=== PATIENT | female | born 1945 | race Caucasian/White ===

== ENCOUNTER 2017-05-12 17:38 | Inpatient (IN) ==
[2017-05-12] MEDS ORDERED: Ondansetron 4 MG/2 ML VIAL IVP PRN (20:20)
[2017-05-12] MEDS ORDERED: Naloxone 0.4 MG/ML INJ IVP PRN (20:20)
[2017-05-12] MEDS ORDERED: *HR* Morphine 2 MG/ML SYRINGE IVP PRN (20:20)
[2017-05-12] MEDS ORDERED: *HR* HYDROcodone/Acet 5/325 mg TABLET PO PRN (20:20)
[2017-05-12] MEDS ORDERED: D5% in Water 1,000 ML IVC PRN (20:24)
[2017-05-12] MEDS ORDERED: Dextrose Gel 15 GM PO PRN ×2 (20:24)
--- NOTE | 2017-05-12 20:35 | Internal Med History&Physical ---
<Maxime Ko - Last Filed: 05/12/17 21:15> Date of Encounter: 05/12/17 Time of Encounter: 20:32 Assessment and Plan (1) Sepsis Current visit: Yes Status: Acute - Sepsis criteria in [place] ED with RR 24, febrile, wbc count of 23 - Normal lactate, BP stable. - Possibly secondary to bronchitis vs other possibility of PNA or cellulitis - Meningitis doubtful due to lack of neurological symptoms and persistent fever. Will monitor for worsening. - Further management as below for acute on chronic respiratory failure. Qualifiers: Sepsis type: sepsis due to unspecified organism Qualified Code(s): A41.9 - Sepsis, unspecified organism (2) Acute and chronic respiratory failure Current visit: Yes Status: Chronic - Likely secondary to bronchitis. vs early PNA - Wheezing heard on Physical exam. - 2-2.5L home O2, tolerating 4 L at time of admit. - Productive cough, no evidence of PNA seen on CXR/CT - Will give azithromycin, duonebs. - Start cephtriaxone for possible early PNA. Qualifiers: Respiratory failure complication: unspecified whether with hypoxia or hypercapnia Qualified Code(s): J96.20 - Acute and chronic respiratory failure , unspecified whether with hypoxia or hypercapnia (3) Chronic kidney disease (CKD), stage IV (severe) Current visit: Yes Status: Chronic - Renal function at baseline. - Avoid nephrotoxic meds. - Closely monitor K, 4.8 in [place]. (4) Diabetes mellitus type II, non insulin dependent Current visit: Yes Status: Chronic - Most recent A1c of 5.8% in march - Non insulin dependent. - Will give mild SSI. (5) Hypertension Current visit: Yes Status: Chronic - Continue home meds. Qualifiers: Hypertension type: secondary to other renal disorders Qualified Code(s): I15.1 - Hypertension secondary to other renal disorders (6) Lower extremity edema Current visit: Yes Status: Chronic - Likely secondary to CHF, lymphadema - Continue outpatient nystatin cream, lasix. - Unlikely source of fevers. No warmth, erythema noted - Will obtain LE US to rule out DVT (7) Morbid obesity Current visit: Yes Status: Chronic - Morbid obesity with BMI 50. Pt would benefit from outpatient weight loss (8) DVT prophylaxis Current visit: Yes Status: Acute - Heparin 5000 units q12 Internal Medicine - H&P: HPI Chief complaint: SOB, fevers Admitted From: Hospital to Hospital Transfer Plans for Post Hospital Care: Home History of present illness: Ms. Mancera is a 71 year old female who presents from [place] ED with a complaint of increased SOB, fevers, muscle pain since yesterday. She states that her symptoms began suddenly yesterday when she woke yesterday morning with neck and jaw pain which she describes as dull pain and noticed that she has become increasingly SOB despite using her home 2.5L of O2. She also states she has had a productive cough, chest pain, thick green sputum, and chronic LE swelling and pain that was seen by her PCP and she was given augmentin and nystatin cream last week. She reports no improvement with these meds. In the [place] ED, she was noted to have a fever of 102, respirations 20, WBC of 27, lactate 1.5. Troponin 0.06. CXR showed mild pulmonary congestion. CT abdomen/ pelvis/chest showed no evidence of infectious process. Flu swab was negative. She was sent to [facility] [place] for further management. Past Med Surg Social Fam HX - Past Medical History Medical history: asthma, CHF, diabetes, hypertension, renal disease Psychiatric history: no psych history - Past Surgical History Surgical History: , hysterectomy - Social History Smoking Status: Former smoker Smokeless Tobacco Status: No Alcohol use: none Drug use: none - Family History Mother Living Status: Hx Family Cardiac Disorders: No Hx Family Respiratory Disorders: No Hx Family Cancer: Yes Hx Family GI Disorders: No Hx Family Endocrine Disorder: No Hx Family Neuromuscular Disorders: No Hx Family Neurologic Disorders: No Hx Family HEENT Disorders: No Hx Family Autoimmune Disorders: No Brother Living Status: Hx Family Cardiac Disorders: Yes Hx Family Cancer: Yes Internal Medicine - H&P: Meds Amlodipine Besylate 10 mg PO DAILY 11/06/15 [History] Aspirin Enteric Coated [Aspirin EC] 81 mg PO DAILY 11/06/15 [History] Atorvastatin [Lipitor] 10 mg PO DAILY 11/06/15 [History] Carvedilol [Coreg] 25 mg PO BID 11/06/15 [History] Ergocalciferol (VITAMIN D2) [Vitamin D2 (50,000 UNIT)] 50,000 unit PO QWEEK [History] Furosemide [Lasix] 65 mg PO BID 11/06/15 [History] Glimepiride [Amaryl] 1 mg PO BID 11/06/15 [History] Montelukast [Singulair] 10 mg PO QPM 11/06/15 [History] Albuterol Neb [Proventil Neb] 2.5 mg IH Q4HR PRN 02/20/16 [History] metOLazone [Zaroxolyn] 2.5 mg PO BID #30 tablet 02/27/16 [Rx] 3 Allergy/AdvReac Type Severity Reaction Status Date / Time NSAIDS (Non-Steroidal Allergy See Verified 05/12/17 14:53 Anti-Inflamma Comments Sulfa (Sulfonamide Allergy Hives Verified 05/12/17 14:53 Antibiotics) All Systems PM: A 10-system review of systems was performed and is negative for pertinent findings except as documented above in the HPI. - Constitutional Constitutional: chills, fever(s), weakness, no anorexia, no excessive sweating - Cardiovascular Cardiovascular ROS IM: chest pain, dyspnea, dyspnea on exertion, edema, no diaphoresis, no orthopnea - Respiratory Respiratory: cough, dyspnea, dyspnea on exertion, chest congestion, excessive phlegm production, no hemoptysis, no pain with cough - Gastrointestinal Gastrointestinal: nausea, no abdominal pain, no change in bowel habits, no constipation, no diarrhea, no loose stools, no melena, no vomiting - Genitourinary Genitourinary: no dysuria - Musculoskeletal Musculoskeletal ROS IM: myalgias, neck pain, no muscle weakness, no numbness, no tingling - Integumentary Integumentary IM: no rash - Neurological Neurological ROS: no numbness, no tingling, no weakness - Constitutional Vitals: Temp Pulse Resp BP Pulse Ox 98.6 F 75 18 118/70 96 05/12/17 19:34 05/12/17 19:34 05/12/17 19:34 05/12/17 19:34 05/12/17 19:34 Exam: Gen.: Vitals noted. No acute distress. AAOx3 HEENT: PERRL, oropharynx clear, Normocephalic, atraumatic, MMM. Poor dentition Cardiac: RRR, no murmur, +S1/S2 Pulmonary: Inspiratory wheezes diffusely. Wet cough while in room.equal chest expansion Abdomen: soft, mildly tender diffusely, BS noted, no guarding MSK: ROM intact, no joint swelling noted Extremities:Lower extremities wrapped, pitting edema noted. No erythema or discharge, warmth. Calf tender but pt reports chronic due to swelling. no cyanosis or clubbing Neuro: A&Ox3, moves all extremities, no focal deficits Psych: Appropriate mood and behavior <Eryn Siegel - Last Filed: 05/13/17 06:19> Date of Encounter: 05/13/17 Internal Medicine - H&P: HPI History of present illness: Ms. Mancera is a 71 year old female All Systems PM: A 10-system review of systems was performed and is negative for pertinent findings except as documented above in the HPI. - Constitutional Vitals: Temp Pulse Resp BP Pulse Ox 97.9 F 65 16 119/56 98 05/13/17 02:52 05/13/17 02:52 05/13/17 02:52 05/13/17 02:52 05/13/17 02:52 Internal Med - H&P Results - Labs CBC & Chem 7: 05/13/17 02:47 05/13/17 02:47 Labs: Short CBC 05/13/17 Range/Units 02:47 WBC 22.4 H (4.3-11.1) K/mcL Hgb 9.2 L (11.5-15.4) g/dL Hct 30.0 L (35.3-44.9) % Plt Count 219 (140-400) K/mcL Neutrophils # 19.9 H (1.6-8.9) K/mcL BMP 05/13/17 02:47 Sodium 138 Potassium 4.4 Chloride 99 Carbon Dioxide 31 H BUN 64 H Creatinine 3.21 H Glucose 67 L Calcium 8.8 - Attending Attestation I have seen and examined the patient independently. I have discussed with resident physician Dr. Ko regarding the management plan. Agree with the documentation.
[2017-05-12] MEDS ORDERED: Azithromycin 500 MG in D5% in Water 250 ML IVPB SCH (21:00)
[2017-05-12] MEDS: Acetaminophen 325 MG TABLET PO PRN (21:18)
[2017-05-12] MEDS: Ipratropium/Albuterol Neb 3 ML IH PRN (21:56)
[2017-05-13 03:36] LABS: Basophils # 0.1 K/mcL (0.0-0.2); Basophils % 0.2 %; Hemoglobin 9.2 g/dL (11.5-15.4); Immature Granulocytes % 0.6 % (0-4); Lymphocytes # 1.1 K/mcL (0.6-4.6); Lymphocytes % 4.7 %; Mean Corpuscular HGB Conc 30.7 g/dL (31.6-35.5); Mean Corpuscular Volume 94.6 fL (83.0-100.0); Mean Platelet Volume 12.1 fL (9.4-12.4); Monocytes # 1.2 K/mcL (0.0-1.3); Monocytes % 5.3 %; Neutrophils # 19.9 K/mcL (1.6-8.9); Nucleated Red Blood Cells 0.1 /100 WBC (0); Platelet Count 219 K/mcL (140-400); Red Blood Count 3.17 M/mcL (3.82-4.97); Red Cell Distribution Width 14.5 % (11.5-14.5); Segmented Neutrophils % 89.2 %
[2017-05-13 03:56] LABS: Calcium 8.8 mg/dL (8.6-10.8); Potassium 4.4 mEq/L (3.5-4.5)
[2017-05-13] MEDS ORDERED: *HR* Heparin 5,000 UNIT/ML VIAL SQ SCH (06:00)
[2017-05-13] MEDS: Insulin LISPRO 300 UNITS/3 ML VIAL SQ SCH ×3 (08:26→17:14)
[2017-05-13] MEDS ORDERED: cefTRIAXone 1,000 MG in Water for inj. (sterile) 10 ML IVP SCH (09:00)
[2017-05-13] MEDS: Ipratropium/Albuterol Neb 3 ML IH PRN (09:09)
[2017-05-13] MEDS ORDERED: 0.9 % Sodium Chloride 1,000 ML IVC ONE (11:31)
[2017-05-13] MEDS ORDERED: 0.9 % Sodium Chloride 1,000 ML ONE (11:39)
[2017-05-13] MEDS ORDERED: Vancomycin 2,000 MG in D5% in Water 250 ML IVPB SCH (12:00)
[2017-05-13] MEDS ORDERED: Vancomycin 2,000 MG in D5% in Water 500 ML IVPB ONE (13:00)
[2017-05-13] MEDS: *HR* Heparin 5,000 UNIT/ML VIAL SQ SCH ×2 (13:53→21:12)
[2017-05-13] MEDS: Acetaminophen 325 MG TABLET PO PRN (13:53)
--- NOTE | 2017-05-13 16:47 | Internal Med Progress Note ---
Date of Encounter: 05/13/17 Time of Encounter: 16:42 - Assessment and plan (1) Cellulitis Current Visit: No Status: Acute Assessment and plan: Kami Mancera is a 71-year-old female with past medical history COPD, CHF, diabetes, hypertension and morbid obesity who presented to outside hospital on 05/12/2017 with fever and was found to be septic. She was transferred to [facility] for further workup and treatment. 1. Nonpurulent bilateral lower extremity cellulitis: bilateral lower extremities with diffuse erythema warmth and tenderness. Left worse than right. Was being treated with oral fluconazole for suspected fungal infection. Bilateral lower extremitie Dopplers negative for DVT. No drainage to culture. Add IV Vanco. Monitor clinical response. 2. Sepsis: RR 24, temp 103, WBC 23K. lactic acid normal. No tachycardia, no hypertension. Hemodynamically stable. Treated with IV fluids. Secondary to bilateral lower extreme any cellulitis. Continue treating with Vanco as noted above. 3. Acute on chronic kidney disease: Per history. Follows with Dr. Astudillo. Cr 3.2 on arrival which appears to be worse than baseline. Likely secondary to hypoperfusion with sepsis and poor PO intake for 2 days prior to admission. Gentle IV fluids with history of CHF. Avoid nephrotoxic agents. Renal dose Vanco. Monitor repeat renal function 4. Diabetes: Per history. On Amaryl at home. Blood sugars in 40s to 50s while inpatient. Asymptomatic. Stop all insulin. Monitor blood sugar. Hgb A1c pending 5. Hypertension: Per history. BP variable but acceptable. Continue home BP medication once medication reconciliation was completed. Monitor BP 6. Elevated troponin: Troponin peaked at 0.06 and trended down. No known CAD. Patient reported chest pain prior to admission, resolved spontaneously. Denies chest pain. EKG without acute ST changes. Possibly secondary to worsening renal function however she does have multiple risk factors. Recommended stress test however patient is refusing stress test or heart catheterization. Monitor on telemetry. Continue home ASA, statin. 7. DVT prophylaxis: heparin 8. Chronic diastolic dysfunction: 10/2015 TTE with EF 60% and diastolic dysfunction. With lower extreme edema secondary to cellulitis as noted above but does not appear overloaded on exam. Holding home Lasix with worsening renal function. Repeat echo pending Qualifiers: Site of cellulitis: extremity Site of cellulitis of extremity: lower extremity Laterality: left Qualified Code(s): L03.116 - Cellulitis of left lower limb (2) CHRISTOPHE (acute kidney injury) Current Visit: No Status: Acute (3) Chest pain Current Visit: No Status: Acute Qualifiers: Chest pain type: unspecified Qualified Code(s): R07.9 - Chest pain, unspecified (4) CHF (congestive heart failure) Current Visit: No Status: Chronic Qualifiers: Congestive heart failure type: unspecified congestive heart failure type Congestive heart failure chronicity: acute on chronic Qualified Code(s): I50.9 - Heart failure, unspecified (5) Chronic kidney disease (CKD), stage IV (severe) Current Visit: Yes Status: Chronic (6) Diabetes mellitus type II, non insulin dependent Current Visit: Yes Status: Chronic - Subjective Interval history: Seen and examined at bedside. Patient is new to me, information obtained from chart review and patient report. Patient says she feels better now versus when she first came in. Reports fever yesterday with chest pain and shortness of breath. Says she has been taking an antibiotic for her lower extremity cellulitis. Says her PCP thought it was a fungal infection and she has been taking. She complains of bilateral lower extremity pain all my exam. Says feels like her legs are burning. He makes better or worse. She denies chest pain or shortness of breath. - Constitutional Vitals: Temp Pulse Resp BP Pulse Ox 97.9 F 70 18 112/57 91 05/13/17 15:12 05/13/17 15:12 05/13/17 15:12 05/13/17 15:12 05/13/17 15:12 General appearance: Present: A&O X 3, morbidly obese, no acute distress - Head Head exam: Present: atraumatic, normocephalic - Eye Eye exam: Present: PERRL, conjuntiva pink, sclera anicteric Pupils: Present: PERRL - Neck Neck exam general surgery: Present: supple, trachea midline. Absent: lymphadenopathy - Respiratory Respiratory exam: Present: CTAB. Absent: accessory muscle use, rales, rhonchi, wheezes - Cardiovascular Cardiovascular exam: Present: RRR, +S1, +S2. Absent: diastolic murmur, gallop, rubs, systolic murmur - GI/Abdominal GI/Abdominal exam: Present: normal bowel sounds, soft, no peritoneal signs. Absent: distended, tenderness - Extremities Exam Extremities exam: Present: pedal edema, warm, radial pulses palpable and symmetrical. Absent: calf tenderness, cyanotic Additional comments: Bilateral lower extremity edema; left worse than right - Neurological Exam Neurological exam: Present: CN II-XII intact, oriented X3, no focal deficits. Absent: pronater drift, facial droop, speech deficit - Skin Skin exam: Present: dry, intact Internal Medicine: Result - Labs CBC & Chem 7: 05/13/17 02:47 05/13/17 02:47 Labs: Short CBC 05/13/17 Range/Units 02:47 WBC 22.4 H (4.3-11.1) K/mcL Hgb 9.2 L (11.5-15.4) g/dL Hct 30.0 L (35.3-44.9) % Plt Count 219 (140-400) K/mcL Neutrophils # 19.9 H (1.6-8.9) K/mcL BMP 05/13/17 02:47 Sodium 138 Potassium 4.4 Chloride 99 Carbon Dioxide 31 H BUN 64 H Creatinine 3.21 H Glucose 67 L Calcium 8.8 Cardiac Enzymes 05/13/17 05/13/17 Range/Units 09:08 14:21 Troponin I 0.06 H* 0.04 H* (0-0.03) ng/mL - VTE Documentation of Mechanical Device: Graduated compression elastic hosiery Consult Discharge Plan - Plan Referrals: Rj Pollack MD [Primary Care Provider] -
[2017-05-13] MEDS ORDERED: Albuterol 2.5 MG/3 ML NEBULIZER IH PRN (17:30)
[2017-05-13] MEDS: *HR* Dextrose 50 % in Water (Syg) 50 ML SYRINGE IVP PRN (21:44)
[2017-05-13] MEDS ORDERED: D10% in Water 500 ML IVC SCH (22:30)
[2017-05-14] MEDS: *HR* Dextrose 50 % in Water (Syg) 50 ML SYRINGE IVP PRN ×2 (00:30→04:22)
[2017-05-14 04:03] LABS: Hematocrit 28.8 % (35.3-44.9); Hemoglobin 8.8 g/dL (11.5-15.4); Immature Platelets 9.8 % (1.1-6.1); Mean Corpuscular HGB Conc 30.6 g/dL (31.6-35.5); Mean Corpuscular Hemoglobin 29.1 pg (28.0-33.3); Mean Corpuscular Volume 95.4 fL (83.0-100.0); Red Blood Count 3.02 M/mcL (3.82-4.97); Red Cell Distribution Width 14.5 % (11.5-14.5)
[2017-05-14 04:19] LABS: Hemoglobin A1C 5.8 %
[2017-05-14 04:22] LABS: Calcium 8.7 mg/dL (8.6-10.8); Potassium 4.1 mEq/L (3.5-4.5)
[2017-05-14] MEDS: D10% in Water 500 ML IVC SCH ×7 (05:06→23:33)
[2017-05-14] MEDS: Acetaminophen 325 MG TABLET PO PRN ×2 (05:10→16:56)
[2017-05-14] MEDS: Ipratropium/Albuterol Neb 3 ML IH PRN ×2 (05:54→16:49)
[2017-05-14] MEDS: *HR* Heparin 5,000 UNIT/ML VIAL SQ SCH ×3 (06:22→20:36)
[2017-05-14] MEDS: amLODIPine 5 MG TABLET PO SCH (07:48)
[2017-05-14] MEDS: Aspirin Enteric Coated 81 MG Tablet PO SCH (07:48)
--- NOTE | 2017-05-14 15:30 | Internal Med Progress Note ---
Date of Encounter: 05/14/17 Time of Encounter: 09:30 - Assessment and plan (1) Cellulitis Current Visit: No Status: Acute Assessment and plan: Kami Mancera is a 71-year-old female with past medical history COPD, CHF, diabetes, hypertension and morbid obesity who presented to outside hospital on 05/12/2017 with fever and was found to be septic. She was transferred to [facility] for further workup and treatment. 1. Nonpurulent bilateral lower extremity cellulitis: bilateral lower extremities with diffuse erythema warmth and tenderness. Left worse than right. Was being treated with oral fluconazole for suspected fungal infection. Bilateral lower extremitie Dopplers negative for DVT. No drainage to culture. Cont IV Vanco. Monitor clinical response. 2. Sepsis: RR 24, temp 103, WBC 23K. lactic acid normal. No tachycardia, no hypertension. Hemodynamically stable. Treated with IV fluids. Secondary to bilateral lower extreme any cellulitis. Continue treating with Vanco as noted above. 3. Acute on chronic kidney disease: Per history. Follows with Dr. Astudillo. Cr 3.2 on arrival which is worse than baseline. Likely secondary to hypoperfusion with sepsis and poor PO intake for 2 days prior to admission. Hold IV fluids with history of CHF. Hold lasix. Encourage H2O intake. Avoid nephrotoxic agents. Renal dose Vanco. Monitor repeat renal function 4. Diabetes: Per history. On Amaryl at home. Blood sugars in 40s to 50s despite 2 amps IV dextrose. Secondary to home oral hypoglycemic with worsening renal function. Continue D10 infusion. Monitor blood sugar and titrate dextrose infusion as able. Suspect glucose will normalize as renal function improves. 5. Hypertension: Per history. BP variable but acceptable. Continue home BP medication once medication reconciliation was completed. Monitor BP 6. Elevated troponin: Troponin peaked at 0.06 and trended down. No known CAD. Patient reported chest pain prior to admission, resolved spontaneously. Denies chest pain. EKG without acute ST changes. Possibly secondary to worsening renal function however she does have multiple risk factors. Recommended stress test however patient is refusing stress test or heart catheterization. Monitor on telemetry. Continue home ASA, statin. 7. DVT prophylaxis: heparin 8. Chronic diastolic dysfunction: 10/2015 TTE with EF 60% and diastolic dysfunction. With lower extreme edema secondary to cellulitis as noted above but does not appear overloaded on exam. Holding home Lasix with worsening renal function. Repeat echo pending Qualifiers: Site of cellulitis: extremity Site of cellulitis of extremity: lower extremity Laterality: left Qualified Code(s): L03.116 - Cellulitis of left lower limb (2) CHRISTOPHE (acute kidney injury) Current Visit: No Status: Acute (3) Chest pain Current Visit: No Status: Acute Qualifiers: Chest pain type: unspecified Qualified Code(s): R07.9 - Chest pain, unspecified (4) CHF (congestive heart failure) Current Visit: No Status: Chronic Qualifiers: Congestive heart failure type: unspecified congestive heart failure type Congestive heart failure chronicity: acute on chronic Qualified Code(s): I50.9 - Heart failure, unspecified (5) Chronic kidney disease (CKD), stage IV (severe) Current Visit: Yes Status: Chronic (6) Diabetes mellitus type II, non insulin dependent Current Visit: Yes Status: Chronic - Subjective Interval history: Seen and examined at bedside. Still complaining of bilateral lower extremity pain but overall improved. She thinks her legs are not as red or swollen today. No chest pain or shortness of breath. - Constitutional Vitals: Temp Pulse Resp BP Pulse Ox 98.0 F 100 18 114/71 94 05/14/17 11:31 05/14/17 11:31 05/14/17 11:31 05/14/17 11:31 05/14/17 11:31 General appearance: Present: A&O X 3, morbidly obese, no acute distress - Head Head exam: Present: atraumatic, normocephalic - Eye Eye exam: Present: PERRL, conjuntiva pink, sclera anicteric Pupils: Present: PERRL - Neck Neck exam general surgery: Present: supple, trachea midline. Absent: lymphadenopathy - Respiratory Respiratory exam: Present: CTAB. Absent: accessory muscle use, rales, rhonchi, wheezes - Cardiovascular Cardiovascular exam: Present: RRR, +S1, +S2. Absent: diastolic murmur, gallop, rubs, systolic murmur - GI/Abdominal GI/Abdominal exam: Present: normal bowel sounds, soft, no peritoneal signs. Absent: distended, tenderness Additional comments: obese - Extremities Exam Extremities exam: Present: pedal edema, warm, radial pulses palpable and symmetrical. Absent: calf tenderness, cyanotic Additional comments: Bilateral lower extremity edema with improving erythema and tenderness. - Neurological Exam Neurological exam: Present: CN II-XII intact, oriented X3, no focal deficits. Absent: pronater drift, facial droop, speech deficit - Skin Skin exam: Present: dry, intact Internal Medicine: Result - Labs CBC & Chem 7: 05/14/17 02:48 05/14/17 02:48 Labs: Short CBC 05/14/17 Range/Units 02:48 WBC 15.1 H (4.3-11.1) K/mcL Hgb 8.8 L (11.5-15.4) g/dL Hct 28.8 L (35.3-44.9) % Plt Count 197 (140-400) K/mcL BMP 05/14/17 02:48 Sodium 136 Potassium 4.1 Chloride 98 Carbon Dioxide 31 H BUN 64 H Creatinine 3.05 H Glucose 49 L Calcium 8.7 - VTE Documentation of Mechanical Device: Graduated compression elastic hosiery Consult Discharge Plan - Plan Referrals: Rj Pollack MD [Primary Care Provider] -
[2017-05-14] MEDS ORDERED: 0.9 % Sodium Chloride 1,000 ML IVC SCH (15:45)
[2017-05-14] MEDS ORDERED: Vancomycin 500 MG in D5% in Water 100 ML IVPB ONE (18:00)
[2017-05-15] MEDS: D10% in Water 500 ML IVC SCH ×2 (02:56→06:05)
[2017-05-15] MEDS: Ipratropium/Albuterol Neb 3 ML IH PRN ×4 (04:46→22:52)
[2017-05-15 05:00] LABS: Hematocrit 31.2 % (35.3-44.9); Hemoglobin 9.6 g/dL (11.5-15.4); Mean Corpuscular HGB Conc 30.8 g/dL (31.6-35.5); Mean Corpuscular Hemoglobin 28.8 pg (28.0-33.3); Mean Corpuscular Volume 93.7 fL (83.0-100.0); Mean Platelet Volume 11.7 fL (9.4-12.4); Platelet Count 234 K/mcL (140-400); Red Blood Count 3.33 M/mcL (3.82-4.97); Red Cell Distribution Width 14.2 % (11.5-14.5)
[2017-05-15] MEDS: *HR* Heparin 5,000 UNIT/ML VIAL SQ SCH ×3 (05:00→20:40)
[2017-05-15] MEDS: Acetaminophen 325 MG TABLET PO PRN ×3 (05:00→18:10)
[2017-05-15 05:11] LABS: Calcium 8.7 mg/dL (8.6-10.8); Potassium 4.3 mEq/L (3.5-4.5)
[2017-05-15] MEDS: Aspirin Enteric Coated 81 MG Tablet PO SCH (08:28)
[2017-05-15] MEDS: amLODIPine 5 MG TABLET PO SCH (08:28)
--- NOTE | 2017-05-15 11:54 | Discharge Summary ---
Date of Encounter: 05/15/17 Time of Encounter: 11:28 - Discharge Diagnosis (1) Cellulitis Priority: Primary Status: Acute Comments: Kami Mancera is a 71-year-old female with past medical history COPD, CHF, diabetes, hypertension and morbid obesity who presented to outside hospital on 05/12/2017 with fever and was found to be septic. She was transferred to [facility] for further workup and treatment. 1. Nonpurulent bilateral lower extremity cellulitis: bilateral lower extremities with diffuse erythema warmth and tenderness. Left worse than right. PCP treating with oral fluconazole for suspected fungal infection. Bilateral lower extremitie Dopplers negative for DVT. No drainage to culture. Cont Vanco, cefepime. 2. Sepsis: RR 24, temp 103, WBC 23K. lactic acid normal. No tachycardia, no hypertension. Hemodynamically stable. Received IV fluids. Secondary to bilateral lower extreme any cellulitis. Continue treating with ATB as noted above. 3. Acute on chronic kidney disease: Per history. Follows with Dr. Astudillo. Cr 3.2 on arrival which is worse than baseline. Likely secondary to hypoperfusion with sepsis and poor PO intake for 2 days prior to admission. Hold IV fluids with history of CHF. Hold lasix. Encourage H2O intake. Avoid nephrotoxic agents. Renal dose Vanco. Monitor repeat renal function 4. Diabetes: Per history. On Amaryl at home. Blood sugars in 40s to 50s despite 2 amps IV dextrose. Required cont D10 infusion. Secondary to home oral hypoglycemic with worsening renal function. Hgb A1c 5.4%. Blood sugars normalized as renal function improved. D10 off. Hold all insulin, oral hypoglycemics. Monitor blood sugar 5. Hypertension: Per history. BP variable but acceptable. Continue home BP medication once medication reconciliation was completed. Monitor BP 6. Elevated troponin: Troponin peaked at 0.06 and trended down. No known CAD. Patient reported chest pain prior to admission, resolved spontaneously. Denies chest pain. EKG without acute ST changes. Possibly secondary to worsening renal function however she does have multiple risk factors. Recommended stress test but patient refusing stress test or heart catheterization. Monitor on telemetry. Continue home ASA, statin. 7. DVT prophylaxis: heparin 8. Chronic diastolic dysfunction: 10/2015 TTE with EF 60% and diastolic dysfunction. With lower extreme edema secondary to cellulitis but does not appear overloaded on exam. Repeat echo pending. Cont home lasix Qualifiers: Site of cellulitis: extremity Site of cellulitis of extremity: lower extremity Laterality: left Qualified Code(s): L03.116 - Cellulitis of left lower limb (2) CHRISTOPHE (acute kidney injury) Priority: Primary Status: Acute (3) Chest pain Priority: Primary Status: Acute Qualifiers: Chest pain type: unspecified Qualified Code(s): R07.9 - Chest pain, unspecified (4) CHF (congestive heart failure) Priority: Primary Status: Chronic Qualifiers: Congestive heart failure type: unspecified congestive heart failure type Congestive heart failure chronicity: acute on chronic Qualified Code(s): I50.9 - Heart failure, unspecified (5) Chronic kidney disease (CKD), stage IV (severe) Priority: Primary Status: Chronic (6) Diabetes mellitus type II, non insulin dependent Priority: Primary Status: Chronic - Discharge Medications Home Medications: Amlodipine Besylate 5 mg PO DAILY 11/06/15 [History] Aspirin Enteric Coated [Aspirin EC] 81 mg PO DAILY 11/06/15 [History] Atorvastatin [Lipitor] 10 mg PO DAILY 11/06/15 [History] Carvedilol [Coreg] 25 mg PO BID 11/06/15 [History] Ergocalciferol (VITAMIN D2) [Vitamin D2 (50,000 UNIT)] 50,000 unit PO QWEEK [History] Furosemide [Lasix] 40 mg PO BID 11/06/15 [History] Glimepiride [Amaryl] 1 mg PO BID 11/06/15 [History] Montelukast [Singulair] 10 mg PO QPM 11/06/15 [History] Albuterol Neb [Proventil Neb] 2.5 mg IH Q4HR PRN 02/20/16 [History] Spironolactone [Aldactone] 25 mg PO DAILY 05/13/17 [History] Allergies/Adverse Reactions: 3 Allergy/AdvReac Type Severity Reaction Status Date / Time NSAIDS (Non-Steroidal Allergy See Verified 05/12/17 14:53 Anti-Inflamma Comments Sulfa (Sulfonamide Allergy Hives Verified 05/12/17 14:53 Antibiotics) Procedures/tests Complete & Pending: Procedures Performed prior 72 hours Category Date Time Status EV echocardiogram Routine Y 11/19/17 17:31 Completed EV venous imaging LE BI Routine Y 05/13/17 21:13 Completed Date of admission: 05/13/17 11:35 Primary care physician: Rj Pollack MD Discharging clinician: India Glasgow Anticipated date of discharge: 05/15/17 - Patient Status Disposition: Home, Self-Care Condition: Good - Discharge Instructions Follow Up With: Rj Pollack MD [Primary Care Provider] - Interval History: Seen and examined at bedside. Sitting up on edge of bed. Patient says she thinks legs look better. Reports an episode of SOB earlier this morning. Now resolved. No chest pain - Time Spent with Patient Total time spent providing and/or coordinating discharge services: - Constitutional Vitals: Temp Pulse Resp BP Pulse Ox 98.2 F 73 16 136/78 92 05/15/17 07:33 05/15/17 07:33 05/15/17 07:33 05/15/17 07:33 05/15/17 08:25 General appearance: Present: A&O X 3, morbidly obese, no acute distress - Head Head exam: Present: atraumatic, normocephalic - Eye Eye exam: Present: PERRL, conjuntiva pink, sclera anicteric Pupils: Present: PERRL - Neck Neck exam general surgery: Present: supple, trachea midline. Absent: lymphadenopathy - Respiratory Respiratory exam: Present: CTAB. Absent: accessory muscle use, rales, rhonchi, wheezes - Cardiovascular Cardiovascular exam: Present: RRR, +S1, +S2. Absent: diastolic murmur, gallop, rubs, systolic murmur - GI/Abdominal GI/Abdominal exam: Present: normal bowel sounds, soft, no peritoneal signs. Absent: distended, tenderness - Extremities Exam Extremities exam: Present: warm, radial pulses palpable and symmetrical. Absent : calf tenderness, cyanotic, pedal edema - Neurological Exam Neurological exam: Present: CN II-XII intact, oriented X3, no focal deficits. Absent: pronater drift, facial droop, speech deficit - Skin Skin exam: Present: dry, intact Additional comments: Bilateral lower ext edema with improving erythema and swelling - VTE Documentation of Mechanical Device: Graduated compression elastic hosiery
[2017-05-15] MEDS ORDERED: Vancomycin 750 MG in D5% in Water 250 ML IVPB ONE (16:00)
[2017-05-15] MEDS: Furosemide 40 MG TABLET PO SCH (17:15)
[2017-05-15] MEDS: Cefepime HCl 2,000 MG in Water for inj. (sterile) 20 ML IVP SCH (17:16)
[2017-05-15] MEDS ORDERED: Cefepime HCl 2,000 MG in Water for inj. (sterile) 20 ML IVP SCH (18:00)
[2017-05-15] MEDS ORDERED: Cefepime HCl 2,000 MG in D5% in Water (Mini-Bag+) 100 ML IVPB SCH (18:00)
[2017-05-16] MEDS: Acetaminophen 325 MG TABLET PO PRN ×2 (01:04→18:33)
[2017-05-16 03:32] LABS: Hematocrit 27.3 % (35.3-44.9); Hemoglobin 8.6 g/dL (11.5-15.4); Mean Corpuscular HGB Conc 31.5 g/dL (31.6-35.5); Mean Corpuscular Hemoglobin 29.2 pg (28.0-33.3); Mean Corpuscular Volume 92.5 fL (83.0-100.0); Mean Platelet Volume 12.1 fL (9.4-12.4); Platelet Count 204 K/mcL (140-400); Red Blood Count 2.95 M/mcL (3.82-4.97); Red Cell Distribution Width 14.2 % (11.5-14.5)
[2017-05-16 03:41] LABS: Calcium 8.8 mg/dL (8.6-10.8); Potassium 4.5 mEq/L (3.5-4.5)
[2017-05-16] MEDS: *HR* Heparin 5,000 UNIT/ML VIAL SQ SCH ×3 (05:10→20:49)
[2017-05-16] MEDS: Ipratropium/Albuterol Neb 3 ML IH PRN ×2 (05:13→11:25)
[2017-05-16] MEDS: Furosemide 40 MG TABLET PO SCH ×2 (08:34→16:52)
[2017-05-16] MEDS: Spironolactone 25 MG TABLET PO SCH (08:34)
[2017-05-16] MEDS: Aspirin Enteric Coated 81 MG Tablet PO SCH (08:35)
[2017-05-16] MEDS: amLODIPine 5 MG TABLET PO SCH (08:37)
--- NOTE | 2017-05-16 12:46 | Nephrology Consult Note ---
Date of Encounter: 05/16/17 Time of Encounter: 11:40 Assessment and Plan (1) Chronic kidney disease (CKD), stage IV (severe) Current Visit: Yes Status: Chronic SCr at or better than baseline at 2.19, GFR 22 Agree with resuming home lasix at 40mg bid along with aldactone 25mg daily Will check urine for UA and proteinuria Will check PTH and vitamin D levels (2) Lower extremity edema Current Visit: Yes Status: Chronic Diuretics resumed as noted Strict I/Os advised Fluid restriction at 1.5 liter a day advised (3) Cellulitis Current Visit: No Status: Acute Continue abx per primary team Qualifiers: Site of cellulitis: extremity Site of cellulitis of extremity: lower extremity Laterality: left Qualified Code(s): L03.116 - Cellulitis of left lower limb History of Present Illness - Reason for Consult Consult date: 05/16/17 Chronic Kidney Disease Requesting physician: India Glasgow - History of Present Illness 71 y o female with PMH of DM, HTN, CAD and chronic venous insuff/lymphedema admitted and treated for possible sepsis source most likely from her lower extremities. She is currently being treated on iv cefepime with improvement. Her SCr noted initially elevated from baseline at 3.21, GFR 14 but has improved off diuretics for several days now to 2.19, GFR 22. Previous SCr noted at 2.65, as of 03/2017. Renal consulted for help with resuming diuretics while maintaining renal fxn. Past Med Surg Social Fam HX - Past Medical History Medical history: asthma, CHF, diabetes, hypertension, renal disease Psychiatric history: no psych history - Past Surgical History Surgical History: , hysterectomy - Social History Smoking Status: Former smoker Smokeless Tobacco Status: No Alcohol use: none Drug use: none - Family History Mother Living Status: Hx Family Cardiac Disorders: No Hx Family Respiratory Disorders: No Hx Family Cancer: Yes Hx Family GI Disorders: No Hx Family Endocrine Disorder: No Hx Family Neuromuscular Disorders: No Hx Family Neurologic Disorders: No Hx Family HEENT Disorders: No Hx Family Autoimmune Disorders: No Brother Living Status: Hx Family Cardiac Disorders: Yes Hx Family Cancer: Yes Medications and Allergies Amlodipine Besylate 5 mg PO DAILY 11/06/15 [History] Aspirin Enteric Coated [Aspirin EC] 81 mg PO DAILY 11/06/15 [History] Atorvastatin [Lipitor] 10 mg PO DAILY 11/06/15 [History] Carvedilol [Coreg] 25 mg PO BID 11/06/15 [History] Ergocalciferol (VITAMIN D2) [Vitamin D2 (50,000 UNIT)] 50,000 unit PO TH [History] Furosemide [Lasix] 40 mg PO DAILY 11/06/15 [History] Glimepiride [Amaryl] 1 mg PO QPM 11/06/15 [History] Montelukast [Singulair] 10 mg PO QPM 11/06/15 [History] Albuterol Neb [Proventil Neb] 2.5 mg IH Q4HR PRN 02/20/16 [History] Spironolactone [Aldactone] 25 mg PO DAILY 05/13/17 [History] Calcitriol [Rocaltrol] 0.25 mcg PO DAILY 05/15/17 [History] Febuxostat [Uloric] 40 mg PO DAILY 05/15/17 [History] Folic Acid [Folic Acid] 1 mg PO DAILY 05/15/17 [History] Glimepiride [Amaryl] 2 mg PO QAM 05/15/17 [History] Iron Ps Cmplx/Vit B12/FA [Poly-Iron 150 Forte Capsule] 1 cap PO DAILY 05/15/17 [ History] 3 Allergy/AdvReac Type Severity Reaction Status Date / Time NSAIDS (Non-Steroidal Allergy See Verified 05/12/17 14:53 Anti-Inflamma Comments Sulfa (Sulfonamide Allergy Hives Verified 05/12/17 14:53 Antibiotics) Review of Systems All Systems: reviewed and no additional remarkable complaints except as stated ( as noted in HPI, 10 systems reviewed) Exam - Vital Signs Vital signs: Initial Vital Signs Temp Pulse Resp BP Pulse Ox 98.6 F 75 18 118/70 96 05/12/17 19:34 05/12/17 19:34 05/12/17 19:34 05/12/17 19:34 05/12/17 19:34 Vital Signs - Last 8 Hours Temp Pulse Resp BP Pulse Ox 05/16/17 11:25 18 95 05/16/17 11:20 97.5 F L 78 18 138/68 95 05/16/17 07:27 98.3 F 81 16 118/61 89 05/16/17 05:16 28 125/66 95 Intake and Output 05/15/17 05/16/17 05/16/17 23:59 07:59 15:59 Intake Total 200 / 200 Balance 200 / 200 Intake: Oral 200 / 200 Other: Meal water pitcher # Voids 1 1 Weight 145.059 kg Blood Glucose* 196 166 171 Patient Weight 05/16/17 23:59 Weight 145.059 kg - General Appearance General appearance: chronically ill EENT: ATNC Neck: no JVD, supple Additional Comments: good areation ant bilat Cardiology: edema (LE bilat L>R with erythema noted), normal S1, normal S2 Gastrointestinal: no tenderness, no guarding, obese Integumentary: warm and dry Neurologic: no focal deficit Musculoskeletal: no deformities Psychiatric: mood/affect appropriate Results - Lab Results 05/16/17 02:39 05/16/17 02:39 Most recent lab results Calcium 8.8 mg/dL (8.6-10.8) 05/16/17 02:39 Consult Discharge Plan - Plan Referrals: Rj Pollack MD [Primary Care Provider] -
[2017-05-16 13:49] LABS: Bilirubin,Urine Negative (Negative); Blood,Urine Negative (Negative); Clarity,Urine Clear (Clear); Color,Urine Yellow (Yellow); Glucose,Urine (UA) Normal (Normal); Ketones,Urine Negative (Negative); Leukocyte Esterase,Urine Negative (Negative); Nitrite,Urine Negative (Negative); Protein,Urine Negative (Neg-Trace); Specific Gravity,Urine 1.012 (1.010-1.025); Urobilinogen,Urine Normal (Normal)
--- NOTE | 2017-05-16 14:08 | Internal Med Progress Note ---
Date of Encounter: 05/16/17 Time of Encounter: 13:56 - Assessment and plan (1) Cellulitis Current Visit: No Status: Acute Assessment and plan: Kami Mancera is a 71-year-old female with past medical history COPD, CHF, diabetes, hypertension and morbid obesity who presented to outside hospital on 05/12/2017 with fever and was found to be septic. She was transferred to [facility] for further workup and treatment. 1. Nonpurulent bilateral lower extremity cellulitis: bilateral lower extremities with diffuse erythema warmth and tenderness. Left worse than right. Was being treated with oral fluconazole for suspected fungal infection. Bilateral lower extremitie Dopplers negative for DVT. No drainage to culture. Cont IV Vanco, cefepime. Monitor clinical response. 2. Sepsis: RR 24, temp 103, WBC 23K. lactic acid normal. No tachycardia, no hypertension. Hemodynamically stable. Treated with IV fluids. Secondary to bilateral lower extreme any cellulitis. Continue treating with Vanco as noted above. 3. Acute on chronic kidney disease: Per history. Follows with Dr. Astudillo. Cr 3.2 on arrival which is worse than baseline. Likely secondary to hypoperfusion with sepsis and poor PO intake for 2 days prior to admission. Hold IV fluids with history of CHF. Home diuretics initially held, now resumed. Nephrology following. 4. Diabetes: Per history. On Amaryl at home. Blood sugars in 40s to 50s despite 2 amps IV dextrose. Secondary to home oral hypoglycemic with worsening renal function. D10 infusion now off. Blood sugar normalized as kidney function improved. Continue to monitor blood sugars. Holding all insulin at this time. 5. Hypertension: Per history. BP variable but acceptable. Continue home BP medication. BP and titrate PRN 6. Elevated troponin: Troponin peaked at 0.06 and trended down. No known CAD. Patient reported chest pain prior to admission, resolved spontaneously. Denies chest pain. EKG without acute ST changes. Possibly secondary to worsening renal function however she does have multiple risk factors. Recommended stress test however patient is refusing stress test or heart catheterization. Monitor on telemetry. Continue home ASA, statin. 7. DVT prophylaxis: heparin 8. Chronic diastolic dysfunction: 10/2015 TTE with EF 60% and diastolic dysfunction. With lower extreme edema secondary to cellulitis as noted above but does not appear overloaded on exam. 05/15/17 TTE with EF 60%, indeterminate diastolic dysfunction. Continue home diuretics 9. Aortic stenosis: TTE with moderate aortic stenosis. Will need yearly echoes for surveillance. Qualifiers: Site of cellulitis: extremity Site of cellulitis of extremity: lower extremity Laterality: left Qualified Code(s): L03.116 - Cellulitis of left lower limb (2) CHRISTOPHE (acute kidney injury) Current Visit: No Status: Acute (3) Chest pain Current Visit: No Status: Acute Qualifiers: Chest pain type: unspecified Qualified Code(s): R07.9 - Chest pain, unspecified (4) CHF (congestive heart failure) Current Visit: No Status: Chronic Qualifiers: Congestive heart failure type: unspecified congestive heart failure type Congestive heart failure chronicity: acute on chronic Qualified Code(s): I50.9 - Heart failure, unspecified (5) Chronic kidney disease (CKD), stage IV (severe) Current Visit: Yes Status: Chronic (6) Diabetes mellitus type II, non insulin dependent Current Visit: Yes Status: Chronic - Subjective Interval history: Seen and examined at bedside. Says she feels better today but she still concerned with lower extremity edema and redness. She thinks she needs 2 more days in the hospital. Denies chest pain recurrence. Has intermittent shortness of breath. No fevers or chills. - Constitutional Vitals: Temp Pulse Resp BP Pulse Ox 97.5 F L 78 18 138/68 95 05/16/17 11:20 05/16/17 11:20 05/16/17 11:25 05/16/17 11:20 05/16/17 11:25 General appearance: Present: A&O X 3, morbidly obese, no acute distress - Head Head exam: Present: atraumatic, normocephalic - Eye Eye exam: Present: PERRL, conjuntiva pink, sclera anicteric Pupils: Present: PERRL - Neck Neck exam general surgery: Present: supple, trachea midline. Absent: lymphadenopathy - Respiratory Respiratory exam: Present: CTAB. Absent: accessory muscle use, rales, rhonchi, wheezes - Cardiovascular Cardiovascular exam: Present: RRR, +S1, +S2. Absent: diastolic murmur, gallop, rubs, systolic murmur - GI/Abdominal GI/Abdominal exam: Present: normal bowel sounds, soft, no peritoneal signs. Absent: distended, tenderness - Extremities Exam Extremities exam: Present: pedal edema, warm, radial pulses palpable and symmetrical. Absent: calf tenderness, cyanotic Additional comments: Bilateral lower extremity edema improving from yesterday's exam. Left worse than right. - Neurological Exam Neurological exam: Present: CN II-XII intact, oriented X3, no focal deficits. Absent: pronater drift, facial droop, speech deficit - Skin Skin exam: Present: dry, intact Internal Medicine: Result - Labs CBC & Chem 7: 05/16/17 02:39 05/16/17 02:39 Labs: Short CBC 05/16/17 Range/Units 02:39 WBC 10.1 (4.3-11.1) K/mcL Hgb 8.6 L (11.5-15.4) g/dL Hct 27.3 L (35.3-44.9) % Plt Count 204 (140-400) K/mcL BMP 05/16/17 02:39 Sodium 131 L Potassium 4.5 Chloride 95 L Carbon Dioxide 29 BUN 47 H Creatinine 2.19 H Glucose 150 H Calcium 8.8 Urine 05/16/17 Range/Units 13:39 Urine Color Yellow (Yellow) Urine Clarity Clear (Clear) Urine pH 6.0 (5.0-8.0) pH Units Ur Specific [place] 1.012 (1.010-1.025) Urine Protein Negative (Neg-Trace) mg/dL Urine Glucose (UA) Normal (Normal) mg/dL - Impressions Impressions Chest X-Ray 05/15/17 11:47 IMPRESSION: Cardiomegaly. Otherwise, no acute abnormalities seen in the chest D/ / Carlito Pressley MD / Carlito Pressley MD Interpreting Provider: Carlito Pressley MD - VTE Documentation of Mechanical Device: Graduated compression elastic hosiery Consult Discharge Plan - Plan Referrals: Rj Pollack MD [Primary Care Provider] -
[2017-05-16] MEDS: Ipratropium/Albuterol Neb 3 ML IH SCH ×3 (15:48→23:12)
[2017-05-16] MEDS ORDERED: Vancomycin 750 MG in D5% in Water 250 ML IVPB ONE (16:00)
[2017-05-16] MEDS ORDERED: Vancomycin 500 MG in D5% in Water 100 ML IVPB ONE (16:00)
[2017-05-16] MEDS: Cefepime HCl 2,000 MG in Water for inj. (sterile) 20 ML IVP SCH (18:29)
[2017-05-16 22:35] LABS: Protein/Creatinine Ratio,Urine 0.17 mg/mg (0-0.20)
[2017-05-17] MEDS: Ipratropium/Albuterol Neb 3 ML IH SCH ×6 (02:45→23:25)
[2017-05-17 04:35] LABS: Hematocrit 26.7 % (35.3-44.9); Hemoglobin 8.3 g/dL (11.5-15.4); Mean Corpuscular HGB Conc 31.1 g/dL (31.6-35.5); Mean Corpuscular Volume 93.4 fL (83.0-100.0); Mean Platelet Volume 11.8 fL (9.4-12.4); Platelet Count 195 K/mcL (140-400); Red Blood Count 2.86 M/mcL (3.82-4.97); Red Cell Distribution Width 14.1 % (11.5-14.5)
[2017-05-17 04:50] LABS: Calcium 9.1 mg/dL (8.6-10.8); Potassium 4.5 mEq/L (3.5-4.5)
[2017-05-17] MEDS: *HR* Heparin 5,000 UNIT/ML VIAL SQ SCH ×3 (05:17→21:06)
[2017-05-17] MEDS: Spironolactone 25 MG TABLET PO SCH (09:18)
[2017-05-17] MEDS: Furosemide 40 MG TABLET PO SCH ×2 (09:18→17:23)
[2017-05-17] MEDS: Aspirin Enteric Coated 81 MG Tablet PO SCH (09:18)
[2017-05-17] MEDS: amLODIPine 5 MG TABLET PO SCH (09:20)
[2017-05-17] MEDS: Miconazole 2% ointment 114 GM TUBE TP SCH ×2 (13:50→21:06)
--- NOTE | 2017-05-17 15:50 | Internal Med Progress Note ---
Date of Encounter: 05/17/17 Time of Encounter: 15:48 - Assessment and plan (1) Cellulitis Current Visit: No Status: Acute Assessment and plan: Kami Mancera is a 71-year-old female with past medical history COPD, CHF, diabetes, hypertension and morbid obesity who presented to outside hospital on 05/12/2017 with fever and was found to be septic. She was transferred to [facility] for further workup and treatment. 1. Nonpurulent bilateral lower extremity cellulitis: bilateral lower extremities with diffuse erythema warmth and tenderness. Left worse than right. Was being treated with oral fluconazole for suspected fungal infection. Bilateral lower extremitie Dopplers negative for DVT. No drainage to culture. Cont IV Vanco, cefepime. Monitor clinical response. 2. Sepsis: RR 24, temp 103, WBC 23K. lactic acid normal. No tachycardia, no hypertension. Hemodynamically stable. Treated with IV fluids. Secondary to bilateral lower extreme any cellulitis. Continue treating with Vanco as noted above. 3. Acute on chronic kidney disease: Per history. Follows with Dr. Astudillo. Cr 3.2 on arrival which is worse than baseline. Likely secondary to hypoperfusion with sepsis and poor PO intake for 2 days prior to admission. Hold IV fluids with history of CHF. Home diuretics initially held, now resumed. Nephrology following. 4. Diabetes: Per history. On Amaryl at home. Blood sugars in 40s to 50s despite 2 amps IV dextrose. Secondary to home oral hypoglycemic with worsening renal function. D10 infusion now off. Blood sugar normalized as kidney function improved. Continue to monitor blood sugars. Holding all insulin at this time. 5. Hypertension: Per history. BP variable but acceptable. Continue home BP medication. BP and titrate PRN 6. Elevated troponin: Troponin peaked at 0.06 and trended down. No known CAD. Patient reported chest pain prior to admission, resolved spontaneously. Denies chest pain. EKG without acute ST changes. Possibly secondary to worsening renal function however she does have multiple risk factors. Recommended stress test however patient is refusing stress test or heart catheterization. Monitor on telemetry. Continue home ASA, statin. 7. DVT prophylaxis: heparin 8. Chronic diastolic dysfunction: 10/2015 TTE with EF 60% and diastolic dysfunction. With lower extreme edema secondary to cellulitis as noted above but does not appear overloaded on exam. 05/15/17 TTE with EF 60%, indeterminate diastolic dysfunction. Continue home diuretics 9. Aortic stenosis: TTE with moderate aortic stenosis. Will need yearly echoes for surveillance. Qualifiers: Site of cellulitis: extremity Site of cellulitis of extremity: lower extremity Laterality: left Qualified Code(s): L03.116 - Cellulitis of left lower limb (2) CHRISTOPHE (acute kidney injury) Current Visit: No Status: Acute (3) Chest pain Current Visit: No Status: Acute Qualifiers: Chest pain type: unspecified Qualified Code(s): R07.9 - Chest pain, unspecified (4) CHF (congestive heart failure) Current Visit: No Status: Chronic Qualifiers: Congestive heart failure type: unspecified congestive heart failure type Congestive heart failure chronicity: acute on chronic Qualified Code(s): I50.9 - Heart failure, unspecified (5) Chronic kidney disease (CKD), stage IV (severe) Current Visit: Yes Status: Chronic (6) Diabetes mellitus type II, non insulin dependent Current Visit: Yes Status: Chronic - Subjective Interval history: Seen and examined at bedside. Says she feels better today but she still not ready to go home. Patient with increasing oxygen needs overnight. Discussed with patient and she thinks it secondary to congestion, she does not want BiPAP qualification. She feels legs are improving and redness and swelling getting better. No chest pain, no shortness of breath. Complains of intermittent pain/ stinging to bilateral lower extremities. - Constitutional Vitals: Temp Pulse Resp BP Pulse Ox 98.0 F 68 18 136/61 89 05/17/17 15:37 05/17/17 15:37 05/17/17 15:40 05/17/17 15:37 05/17/17 15:40 General appearance: Present: A&O X 3, morbidly obese, no acute distress - Head Head exam: Present: atraumatic, normocephalic - Eye Eye exam: Present: PERRL, conjuntiva pink, sclera anicteric Pupils: Present: PERRL - Neck Neck exam general surgery: Present: supple, trachea midline. Absent: lymphadenopathy - Respiratory Respiratory exam: Present: CTAB. Absent: accessory muscle use, rales, rhonchi, wheezes - Cardiovascular Cardiovascular exam: Present: RRR, +S1, +S2. Absent: diastolic murmur, gallop, rubs, systolic murmur - GI/Abdominal GI/Abdominal exam: Present: normal bowel sounds, soft, no peritoneal signs. Absent: distended, tenderness - Extremities Exam Extremities exam: Present: pedal edema, warm, radial pulses palpable and symmetrical. Absent: calf tenderness, cyanotic Additional comments: Bilateral lower extremity edema with improving erythema and edema. Left remains greater than right. - Neurological Exam Neurological exam: Present: CN II-XII intact, oriented X3, no focal deficits. Absent: pronater drift, facial droop, speech deficit - Skin Skin exam: Present: dry, intact Internal Medicine: Result - Labs CBC & Chem 7: 05/17/17 03:58 05/17/17 03:58 Labs: Short CBC 05/17/17 Range/Units 03:58 WBC 10.2 (4.3-11.1) K/mcL Hgb 8.3 L (11.5-15.4) g/dL Hct 26.7 L (35.3-44.9) % Plt Count 195 (140-400) K/mcL [facility] 05/17/17 03:58 Sodium 134 L Potassium 4.5 Chloride 96 L Carbon Dioxide 29 BUN 53 H Creatinine 2.41 H Glucose 148 H Calcium 9.1 - VTE Documentation of Mechanical Device: Graduated compression elastic hosiery Consult Discharge Plan - Plan Referrals: Rj Pollack MD [Primary Care Provider] -
[2017-05-17] MEDS ORDERED: Vancomycin 500 MG in D5% in Water 100 ML IVPB SCH (16:00)
--- NOTE | 2017-05-17 16:21 | Nephrology Progress Note ---
Date of Encounter: 05/17/17 - Assessment and Plan (1) Chronic kidney disease (CKD), stage IV (severe) Current Visit: Yes Status: Chronic (2) Lower extremity edema Current Visit: Yes Status: Chronic (3) Cellulitis Current Visit: No Status: Acute Qualifiers: Site of cellulitis: extremity Site of cellulitis of extremity: lower extremity Laterality: left Qualified Code(s): L03.116 - Cellulitis of left lower limb Objective - Vital Signs Vital signs: Vital Signs Temp Pulse Resp BP Pulse Ox 05/17/17 15:40 18 89 05/17/17 15:37 98.0 F 68 17 136/61 91 05/17/17 11:51 16 95 05/17/17 10:51 98.0 F 58 18 133/56 92 05/17/17 08:05 24 93 05/17/17 07:04 98.0 F 73 19 144/64 93 05/17/17 05:22 90 05/17/17 03:30 98.2 F 69 20 143/63 88 05/17/17 02:45 20 92 05/16/17 23:12 19 89 05/16/17 23:04 97.6 F 64 20 128/68 90 05/16/17 21:10 88 05/16/17 19:46 14 88 05/16/17 19:07 98.2 F 69 16 132/64 93 Intake and Output 05/17/17 05/17/17 05/17/17 07:59 15:59 23:59 Intake Total 480 / 480 Output Total 300 / 300 Balance -300 / -300 480 / 480 Intake: Oral 480 / 480 Output: Urine 300 / 300 Other: Meal Lunch Percent of Meal Consumed 100% Weight 142.57 kg Blood Glucose* 156 233 Patient Weight 05/17/17 23:59 Weight 142.57 kg - Lab 05/17/17 03:58 05/17/17 03:58 Most recent lab results Calcium 9.1 mg/dL (8.6-10.8) 05/17/17 03:58 Urine Creatinine 48 mg/dL 05/16/17 14:30 Urine Total Protein 8 mg/dL (1-14) 05/16/17 14:30 - VTE Documentation of Mechanical Device: Graduated compression elastic hosiery Consult Discharge Plan - Plan Referrals: Rj Pollack MD [Primary Care Provider] -
[2017-05-17] MEDS: Cefepime HCl 2,000 MG in Water for inj. (sterile) 20 ML IVP SCH (17:24)
[2017-05-18] MEDS: Ipratropium/Albuterol Neb 3 ML IH SCH ×5 (04:03→20:00)
[2017-05-18] MEDS: Acetaminophen 325 MG TABLET PO PRN (05:06)
[2017-05-18] MEDS: *HR* Heparin 5,000 UNIT/ML VIAL SQ SCH ×3 (05:07→21:27)
[2017-05-18 05:25] LABS: Hematocrit 26.1 % (35.3-44.9); Hemoglobin 8.1 g/dL (11.5-15.4); Mean Corpuscular Volume 93.5 fL (83.0-100.0); Mean Platelet Volume 11.9 fL (9.4-12.4); Platelet Count 241 K/mcL (140-400); Red Blood Count 2.79 M/mcL (3.82-4.97); Red Cell Distribution Width 14.3 % (11.5-14.5)
[2017-05-18 05:39] LABS: Calcium 9.5 mg/dL (8.6-10.8); Potassium 4.9 mEq/L (3.5-4.5)
[2017-05-18] MEDS ORDERED: Aminoglycoside Consult 1 EACH MC ONE (08:45)
[2017-05-18] MEDS: Aspirin Enteric Coated 81 MG Tablet PO SCH (09:01)
[2017-05-18] MEDS: Spironolactone 25 MG TABLET PO SCH (09:01)
[2017-05-18] MEDS: Furosemide 40 MG TABLET PO SCH (09:01)
[2017-05-18] MEDS: amLODIPine 5 MG TABLET PO SCH (09:01)
[2017-05-18] MEDS: Miconazole 2% ointment 114 GM TUBE TP SCH ×2 (09:02→21:37)
[2017-05-18] MEDS ORDERED: Albumin 25% 25gram/100mL 25 GM/100 ML IV.SOLN IVPB ONE (09:49)
[2017-05-18] MEDS ORDERED: D5% in Water 1,000 ML IVC PRN (11:56)
[2017-05-18] MEDS ORDERED: Dextrose Gel 15 GM PO PRN ×2 (11:56)
[2017-05-18] MEDS ORDERED: *HR* Dextrose 50 % in Water (Syg) 50 ML SYRINGE IVP PRN (11:56)
[2017-05-18] MEDS: Insulin LISPRO 300 UNITS/3 ML VIAL SQ SCH ×4 (12:37→21:21)
--- NOTE | 2017-05-18 14:03 | Internal Med Progress Note ---
Date of Encounter: 05/18/17 Time of Encounter: 13:58 - Assessment and plan (1) Cellulitis Current Visit: No Status: Acute Assessment and plan: Kami Mancera is a 71-year-old female with past medical history COPD, CHF, diabetes, hypertension and morbid obesity who presented to outside hospital on 05/12/2017 with fever and was found to be septic. She was transferred to [facility] for further workup and treatment. 1. Nonpurulent bilateral lower extremity cellulitis: bilateral lower extremities with diffuse erythema warmth and tenderness. Left worse than right. Was being treated with oral fluconazole for suspected fungal infection. Bilateral lower extremitie Dopplers negative for DVT. No drainage to culture. Initially treated with IV Vanco, cefepime. Descalated to doxycycline as she clinically improved. 2. Sepsis: RR 24, temp 103, WBC 23K. lactic acid normal. No tachycardia, no hypertension. Hemodynamically stable. Treated with IV fluids. Secondary to bilateral lower extreme any cellulitis. Continue treating with Vanco as noted above. 3. Acute on chronic kidney disease: Per history. Follows with Dr. Astudillo. Cr 3.2 on arrival which is worse than baseline. Likely secondary to hypoperfusion with sepsis and poor PO intake for 2 days prior to admission. Hold IV fluids with history of CHF. With little improvement and lower extremity edema. Plan for albumin followed with Lasix for 3 days. Nephrology following. 4. Diabetes: Per history. On Amaryl at home. Blood sugars in 40s to 50s despite 2 amps IV dextrose. Secondary to home oral hypoglycemic with worsening renal function. D10 infusion now off. Blood sugar normalized as kidney function improved. Continue to monitor blood sugars. Add low-dose SSI 5. Hypertension: Per history. BP variable but acceptable. Continue home BP medication. BP and titrate PRN 6. Elevated troponin: Troponin peaked at 0.06 and trended down. No known CAD. Patient reported chest pain prior to admission, resolved spontaneously. Denies chest pain. EKG without acute ST changes. Possibly secondary to worsening renal function however she does have multiple risk factors. Recommended stress test however patient is refusing stress test or heart catheterization. Monitor on telemetry. Continue home ASA, statin. 7. DVT prophylaxis: heparin 8. Chronic diastolic dysfunction: 10/2015 TTE with EF 60% and diastolic dysfunction. With lower extreme edema secondary to cellulitis as noted above but does not appear overloaded on exam. 05/15/17 TTE with EF 60%, indeterminate diastolic dysfunction. 9. Aortic stenosis: TTE with moderate aortic stenosis. Will need yearly echoes for surveillance. Qualifiers: Site of cellulitis: extremity Site of cellulitis of extremity: lower extremity Laterality: left Qualified Code(s): L03.116 - Cellulitis of left lower limb (2) CHRISTOPHE (acute kidney injury) Current Visit: No Status: Acute (3) Chest pain Current Visit: No Status: Acute Qualifiers: Chest pain type: unspecified Qualified Code(s): R07.9 - Chest pain, unspecified (4) CHF (congestive heart failure) Current Visit: No Status: Chronic Qualifiers: Congestive heart failure type: unspecified congestive heart failure type Congestive heart failure chronicity: acute on chronic Qualified Code(s): I50.9 - Heart failure, unspecified (5) Chronic kidney disease (CKD), stage IV (severe) Current Visit: Yes Status: Chronic (6) Diabetes mellitus type II, non insulin dependent Current Visit: Yes Status: Chronic - Subjective Interval history: Seen and examined at bedside. Says she feels about the same, maybe slightly improved. She feels redness and swelling to lower extremities is improving but still with complaints of burning sensation. She says wound care came by and seen her yesterday and told her she had a fungal infection and was given chlorhexidine gluconate soap to wash with daily and topical antifungal cream. She is complaining of sore mouth. No chest pain or shortness of breath. Says she is not drinking or eating much - Constitutional Vitals: Temp Pulse Resp BP Pulse Ox 97.9 F 71 18 140/57 94 05/18/17 06:58 05/18/17 06:58 05/18/17 11:33 05/18/17 11:33 05/18/17 11:33 General appearance: Present: A&O X 3, morbidly obese, no acute distress - Head Head exam: Present: atraumatic, normocephalic - Eye Eye exam: Present: PERRL, conjuntiva pink, sclera anicteric Pupils: Present: PERRL - Neck Neck exam general surgery: Present: supple, trachea midline. Absent: lymphadenopathy - Respiratory Respiratory exam: Present: CTAB. Absent: accessory muscle use, rales, rhonchi, wheezes - Cardiovascular Cardiovascular exam: Present: RRR, +S1, +S2. Absent: diastolic murmur, gallop, rubs, systolic murmur - GI/Abdominal GI/Abdominal exam: Present: normal bowel sounds, soft, no peritoneal signs. Absent: distended, tenderness - Extremities Exam Extremities exam: Present: pedal edema, warm, radial pulses palpable and symmetrical. Absent: calf tenderness, cyanotic Additional comments: Bilateral lower extremity edema with improving erythema. Left greater than right. - Neurological Exam Neurological exam: Present: CN II-XII intact, oriented X3, no focal deficits. Absent: pronater drift, facial droop, speech deficit - Skin Skin exam: Present: dry, intact Internal Medicine: Result - Labs CBC & Chem 7: 05/18/17 04:32 05/18/17 04:32 Labs: Short CBC 05/18/17 Range/Units 04:32 WBC 11.4 H (4.3-11.1) K/mcL Hgb 8.1 L (11.5-15.4) g/dL Hct 26.1 L (35.3-44.9) % Plt Count 241 (140-400) K/mcL BMP 05/18/17 04:32 Sodium 134 L Potassium 4.9 H Chloride 96 L Carbon Dioxide 29 BUN 57 H Creatinine 2.44 H Glucose 146 H Calcium 9.5 - VTE Documentation of Mechanical Device: Graduated compression elastic hosiery Consult Discharge Plan - Plan Referrals: Rj Pollack MD [Primary Care Provider] -
[2017-05-18] MEDS: Magic Mouthwash 10 ML UD Cup PO SCH ×2 (14:51→14:53)
--- NOTE | 2017-05-18 15:42 | Nephrology Progress Note ---
Date of Encounter: 05/18/17 - Assessment and Plan (1) Chronic kidney disease (CKD), stage IV (severe) Current Visit: Yes Status: Chronic SCr worse, will add albumin to diuretic regimen UOP not impressive at 600cc in the past 24hrs (2) Lower extremity edema Current Visit: Yes Status: Chronic (3) Cellulitis Current Visit: No Status: Acute Qualifiers: Site of cellulitis: extremity Site of cellulitis of extremity: lower extremity Laterality: left Qualified Code(s): L03.116 - Cellulitis of left lower limb (4) Hyperkalemia Current Visit: Yes Status: Acute Potassium noted elevated at 4.9, will stop aldactone Renal diet advised Objective - Vital Signs Vital signs: Vital Signs Temp Pulse Resp BP Pulse Ox 05/18/17 15:31 98.2 F 67 20 134/48 91 05/18/17 11:33 18 140/57 94 05/18/17 07:56 18 140/57 90 05/18/17 06:58 97.9 F 71 18 140/57 92 05/18/17 04:04 18 90 05/18/17 03:34 98.8 F 66 18 124/54 92 05/17/17 23:26 18 94 05/17/17 23:23 97.6 F 64 18 153/71 93 05/17/17 19:56 18 90 05/17/17 19:08 97.7 F 73 18 144/61 90 05/17/17 15:40 18 89 Intake and Output 05/17/17 05/18/17 05/18/17 23:59 07:59 15:59 Intake Total 300 / 300 480 / 480 Output Total 300 / 300 300 / 300 Balance 0 / 0 -300 / -300 480 / 480 Intake: Oral 300 / 300 480 / 480 Output: Urine 300 / 300 300 / 300 Other: Meal Lunch Percent of Meal Consumed 100% Weight 137.58 kg Blood Glucose* 205 157 192 Patient Weight 05/18/17 23:59 Weight 137.58 kg - Lab 05/18/17 04:32 05/18/17 04:32 Most recent lab results Calcium 9.5 mg/dL (8.6-10.8) 05/18/17 04:32 Urine Creatinine 48 mg/dL 05/16/17 14:30 Urine Total Protein 8 mg/dL (1-14) 05/16/17 14:30 - VTE Documentation of Mechanical Device: Graduated compression elastic hosiery Consult Discharge Plan - Plan Referrals: Rj Pollack MD [Primary Care Provider] -
[2017-05-18] MEDS: Doxycycline 100 MG in 0.9 % Sodium Chloride 100 ML IVPB SCH (16:11)
[2017-05-18] MEDS: Furosemide 40 MG/4 ML VIAL IVP SCH (21:27)
[2017-05-19] MEDS: Ipratropium/Albuterol Neb 3 ML IH SCH ×7 (00:43→23:47)
[2017-05-19] MEDS: Doxycycline 100 MG in 0.9 % Sodium Chloride 100 ML IVPB SCH ×2 (03:02→17:58)
[2017-05-19 04:44] LABS: Hematocrit 27.3 % (35.3-44.9); Hemoglobin 8.3 g/dL (11.5-15.4); Mean Corpuscular HGB Conc 30.4 g/dL (31.6-35.5); Mean Corpuscular Hemoglobin 28.8 pg (28.0-33.3); Mean Corpuscular Volume 94.8 fL (83.0-100.0); Platelet Count 257 K/mcL (140-400); Red Blood Count 2.88 M/mcL (3.82-4.97); Red Cell Distribution Width 14.5 % (11.5-14.5)
[2017-05-19 04:58] LABS: Calcium 9.2 mg/dL (8.6-10.8); Potassium 4.8 mEq/L (3.5-4.5)
[2017-05-19] MEDS: *HR* Heparin 5,000 UNIT/ML VIAL SQ SCH ×3 (06:34→21:28)
[2017-05-19] MEDS: amLODIPine 5 MG TABLET PO SCH (09:09)
[2017-05-19] MEDS: Magic Mouthwash 10 ML UD Cup PO SCH ×3 (09:09→17:57)
[2017-05-19] MEDS: Aspirin Enteric Coated 81 MG Tablet PO SCH (09:09)
[2017-05-19] MEDS: Albumin 25% 25gram/100mL 25 GM/100 ML IV.SOLN IVPB SCH (09:09)
[2017-05-19] MEDS: Insulin LISPRO 300 UNITS/3 ML VIAL SQ SCH ×4 (09:10→21:25)
[2017-05-19] MEDS: Furosemide 40 MG/4 ML VIAL IVP SCH ×2 (09:11→19:56)
[2017-05-19] MEDS: Miconazole 2% ointment 114 GM TUBE TP SCH ×2 (09:11→20:03)
--- NOTE | 2017-05-19 16:40 | Nephrology Progress Note ---
Date of Encounter: 05/19/17 - Assessment and Plan (1) Chronic kidney disease (CKD), stage IV (severe) Current Visit: Yes Status: Chronic SCr worse, will add albumin to diuretic regimen UOP not impressive at 600cc in the past 24hrs (2) Lower extremity edema Current Visit: Yes Status: Chronic (3) Cellulitis Current Visit: No Status: Acute Qualifiers: Site of cellulitis: extremity Site of cellulitis of extremity: lower extremity Laterality: left Qualified Code(s): L03.116 - Cellulitis of left lower limb (4) Hyperkalemia Current Visit: Yes Status: Acute Potassium noted elevated at 4.9, will stop aldactone Renal diet advised Objective - Vital Signs Vital signs: Vital Signs Temp Pulse Resp BP Pulse Ox 05/19/17 15:29 98.3 F 73 16 136/66 96 05/19/17 15:16 20 93 05/19/17 11:16 20 96 05/19/17 11:05 98.2 F 62 16 151/74 98 05/19/17 07:34 20 90 05/19/17 06:42 97.7 F 65 17 148/94 100 05/19/17 04:58 97.8 F 66 16 152/75 90 05/19/17 04:35 23 91 05/19/17 00:44 19 92 05/18/17 23:00 98.1 F 72 16 146/62 90 05/18/17 20:26 97.9 F 66 16 136/72 91 05/18/17 20:00 19 94 05/18/17 18:45 18 134/48 92 Intake and Output 05/19/17 05/19/17 05/19/17 07:59 15:59 23:59 Intake Total 100 / 100 240 / 240 360 / 360 Output Total 75 / 75 100 / 100 Balance 25 / 25 140 / 140 360 / 360 Intake: IV Fluids 100 / 100 Doxycycline 100 MG In 0.9 % 100 / 100 Sodium Chloride 100 ML @ 100 mls/hr IVPB Q12H [facility] Rx#: [id number] Oral 240 / 240 360 / 360 Output: Urine 75 / 75 100 / 100 Other: Meal Breakfast Lunch Percent of Meal Consumed 80% 95% Stool Size Moderate Stool Consistency formed Stool Characteristics Normal for Patient Stool Color Brown # Bowel Movements 1 Weight 136.078 kg Blood Glucose* 177 200 Patient Weight 05/19/17 23:59 Weight 136.078 kg - Lab 05/19/17 04:11 05/19/17 04:11 Most recent lab results Calcium 9.2 mg/dL (8.6-10.8) 05/19/17 04:11 Urine Creatinine 48 mg/dL 05/16/17 14:30 Urine Total Protein 8 mg/dL (1-14) 05/16/17 14:30 - VTE Documentation of Mechanical Device: Graduated compression elastic hosiery Consult Discharge Plan - Plan Referrals: Rj Pollack MD [Primary Care Provider] -
--- NOTE | 2017-05-19 19:03 | Internal Med Progress Note ---
Date of Encounter: 05/19/17 Time of Encounter: 16:00 - Assessment and plan (1) CHF (congestive heart failure) Current Visit: Yes Status: Chronic Assessment and plan: Patient reports new onset wheezing and shortness of breath that started since she has been here. She says 3-4 days ago it began. She does require supplemental oxygen. Chest x-ray was ordered that showed pulmonary edema. Original chest x-ray on April, showed cardiomegaly and no acute abnormalities. Patient had echocardiogram on 05/14 that showed LVEF of 60-65% with moderate concentric LV hypertrophy and indeterminate diastolic function, severely dilated left atrium, moderate to severely dilated right atrium, moderate aortic stenosis and mild pulmonary hypertension. This remains largely unchanged from prior echocardiogram in Oct, 2015. Patient denies chest pain. We will continue aspirin and statin, carvedilol and 40 mg IVP Lasix twice daily. Qualifiers: Congestive heart failure type: diastolic Congestive heart failure chronicity: acute on chronic Qualified Code(s): I50.33 - Acute on chronic diastolic (congestive) heart failure (2) Diabetes mellitus type II, non insulin dependent Current Visit: Yes Status: Chronic Assessment and plan: Patient is getting sliding scale insulin, Accu-Cheks before meals at bedtime. Continue diabetic diet. A1c is 5.8%. (3) Hypertension Current Visit: Yes Status: Chronic Assessment and plan: The pressure is well controlled in the inpatient setting. Continue home medications. Continue to monitor vital signs per admission orders. Qualifiers: Hypertension type: secondary to other renal disorders Qualified Code(s): I15.1 - Hypertension secondary to other renal disorders (4) DVT prophylaxis Current Visit: Yes Status: Acute Assessment and plan: Heparin subcutaneous. (5) Acute and chronic respiratory failure Current Visit: Yes Status: Chronic Assessment and plan: Patient is requiring supplemental oxygen above her normal demand. Continue to monitor and titrate to maintain sats greater than 92%. Qualifiers: Respiratory failure complication: unspecified whether with hypoxia or hypercapnia Qualified Code(s): J96.20 - Acute and chronic respiratory failure , unspecified whether with hypoxia or hypercapnia (6) Morbid obesity Current Visit: Yes Status: Chronic Assessment and plan: Chronic. Lifestyle changes. (7) Cellulitis Current Visit: No Status: Acute Assessment and plan: 1. Nonpurulent bilateral lower extremity cellulitis: bilateral lower extremities with diffuse erythema warmth and tenderness. Left worse than right. Was being treated with oral fluconazole for suspected fungal infection. Bilateral lower extremitie Dopplers negative for DVT. No drainage to culture. Initially treated with IV Vanco, cefepime. Descalated to doxycycline as she clinically improved. Patient reports continued improvement today. She denies pain and both she and her feel that she is doing better. Continue current regimen please Qualifiers: Site of cellulitis: extremity Site of cellulitis of extremity: lower extremity Laterality: left Qualified Code(s): L03.116 - Cellulitis of left lower limb (8) CKD (chronic kidney disease), stage III Current Visit: Yes Status: Chronic Assessment and plan: Acute on chronic. Patient is being followed by nephrology. I appreciate her consultation and recommendations. She is adding albumin to diuretic regimen As for the hyperkalemia, Aldactone has been stopped and a renal diet is advised. - Time Spent With Patient less than 15 minutes - Subjective Interval history: As was seen and assessed at 1600 today. She is alert, pleasant, at bedside. She is sitting at the side of the bed and states that she is feeling better. She reports improvement in her legs both in the redness and the pain. Patient reports that she has had a cough recently that is new since she has been here. Male bedside says he can hear her wheezing. Chest x-ray ordered. She denies headache, nausea, vomiting, diaphoresis, diarrhea, constipation, abdominal pain. She denies dizziness, or near syncope. She denies chest pain or productive cough. - Constitutional Vitals: Temp Pulse Resp BP Pulse Ox 98.3 F 67 12 144/74 90 05/19/17 18:31 05/19/17 18:31 05/19/17 18:31 05/19/17 18:31 05/19/17 18:31 General appearance: Present: A&O X 3, morbidly obese, no acute distress, answers questions appropriately - Head Head exam: Present: atraumatic, normal inspection, normocephalic - Eye Eye exam: Present: conjuntiva pink, sclera anicteric - Neck Neck exam general surgery: Present: supple, trachea midline. Absent: lymphadenopathy, tenderness - Respiratory Respiratory exam: Present: decreased breath sounds, wheezes. Absent: accessory muscle use, CTAB, rales, respiratory distress, rhonchi - Cardiovascular Cardiovascular exam: Present: RRR, +S1, +S2. Absent: diastolic murmur, gallop, rubs, systolic murmur - GI/Abdominal GI/Abdominal exam: Present: normal bowel sounds, soft, no peritoneal signs. Absent: distended, hepatomegaly, tenderness - Extremities Exam Extremities exam: Present: pedal edema, tenderness, warm. Absent: calf tenderness, cyanotic, full ROM, normal inspection - Neurological Exam Neurological exam: Present: CN II-XII intact, oriented X3, no focal deficits. Absent: facial droop, speech deficit - Skin Skin exam: Present: dry, intact, normal color, warm. Absent: rash Internal Medicine: Result - Labs CBC & Chem 7: 05/19/17 04:11 05/19/17 04:11 Labs: Short CBC 05/19/17 Range/Units 04:11 WBC 11.6 H (4.3-11.1) K/mcL Hgb 8.3 L (11.5-15.4) g/dL Hct 27.3 L (35.3-44.9) % Plt Count 257 (140-400) K/mcL BMP 05/19/17 04:11 Sodium 136 Potassium 4.8 H Chloride 98 Carbon Dioxide 29 BUN 53 H Creatinine 2.27 H Glucose 165 H Calcium 9.2 - Impressions Impressions Chest X-Ray 05/19/17 18:06 IMPRESSION: Mild pulmonary edema. D/ / Ryan Marrero MD / Ryan Marrero MD Interpreting Provider: Ryan Marrero MD - VTE Documentation of Mechanical Device: Graduated compression elastic hosiery Consult Discharge Plan - Plan Referrals: Rj Pollack MD [Primary Care Provider] -
[2017-05-20] MEDS: Doxycycline 100 MG in 0.9 % Sodium Chloride 150 ML IVPB SCH ×2 (02:59→14:53)
[2017-05-20] MEDS: Ipratropium/Albuterol Neb 3 ML IH SCH ×6 (04:03→23:41)
[2017-05-20] MEDS: methylPREDNISolone 125 MG/2 ML VIAL IVP SCH ×3 (04:50→17:44)
[2017-05-20] MEDS: *HR* Heparin 5,000 UNIT/ML VIAL SQ SCH ×3 (05:44→20:51)
[2017-05-20] MEDS: Magic Mouthwash 10 ML UD Cup PO SCH ×3 (06:36→17:44)
[2017-05-20 07:10] LABS: Hemoglobin 8.4 g/dL (11.5-15.4); Mean Corpuscular Hemoglobin 29.2 pg (28.0-33.3); Mean Corpuscular Volume 97.2 fL (83.0-100.0); Platelet Count 270 K/mcL (140-400); Red Blood Count 2.88 M/mcL (3.82-4.97); Red Cell Distribution Width 14.6 % (11.5-14.5)
[2017-05-20 07:21] LABS: Calcium 9.4 mg/dL (8.6-10.8); Potassium 5.3 mEq/L (3.5-4.5)
[2017-05-20] MEDS: Aspirin Enteric Coated 81 MG Tablet PO SCH (08:16)
[2017-05-20] MEDS: Insulin LISPRO 300 UNITS/3 ML VIAL SQ SCH ×4 (08:16→20:51)
[2017-05-20] MEDS: Furosemide 40 MG/4 ML VIAL IVP SCH ×2 (08:16→20:51)
[2017-05-20] MEDS: Albumin 25% 25gram/100mL 25 GM/100 ML IV.SOLN IVPB SCH (08:17)
[2017-05-20] MEDS: amLODIPine 5 MG TABLET PO SCH (08:17)
[2017-05-20] MEDS: Miconazole 2% ointment 114 GM TUBE TP SCH ×2 (08:18→20:53)
--- NOTE | 2017-05-20 17:11 | Nephrology Progress Note ---
Date of Encounter: 05/20/17 - Assessment and Plan (1) Chronic kidney disease (CKD), stage IV (severe) Current Visit: Yes Status: Chronic SCr worse, will add albumin to diuretic regimen UOP not impressive at 600cc in the past 24hrs (2) Lower extremity edema Current Visit: Yes Status: Chronic (3) Cellulitis Current Visit: No Status: Acute Qualifiers: Site of cellulitis: extremity Site of cellulitis of extremity: lower extremity Laterality: left Qualified Code(s): L03.116 - Cellulitis of left lower limb (4) Hyperkalemia Current Visit: Yes Status: Acute Potassium noted elevated at 4.9, will stop aldactone Renal diet advised Objective - Vital Signs Vital signs: Vital Signs Temp Pulse Resp BP Pulse Ox 05/20/17 15:49 28 90 05/20/17 15:30 97.5 F L 70 20 156/67 93 05/20/17 11:34 97.2 F L 66 16 139/67 93 05/20/17 08:39 96 05/20/17 07:11 97.1 F L 67 17 135/99 94 05/20/17 04:04 14 94 05/20/17 03:52 97.7 F 58 12 152/51 95 05/19/17 23:47 14 96 05/19/17 22:56 97.7 F 63 12 139/62 91 05/19/17 20:23 14 92 05/19/17 18:31 98.3 F 67 12 144/74 90 Intake and Output 05/20/17 05/20/17 05/20/17 07:59 15:59 23:59 Intake Total 150 / 150 1080 / 1080 Output Total 500 / 500 250 / 250 Balance -350 / -350 830 / 830 Intake: IV Fluids 150 / 150 Doxycycline 100 MG In 0.9 % 150 / 150 Sodium Chloride 150 ML @ 150 mls/hr IVPB Q12H [facility] Rx#: [id number] Oral 1080 / 1080 Output: Urine 500 / 500 250 / 250 Other: Meal Lunch Percent of Meal Consumed 100% Stool Size Small # Bowel Movements 1 Weight 139.752 kg Blood Glucose* 183 329 Patient Weight 05/20/17 23:59 Weight 139.752 kg - Lab 05/20/17 06:36 05/20/17 06:36 Most recent lab results Calcium 9.4 mg/dL (8.6-10.8) 05/20/17 06:36 Urine Creatinine 48 mg/dL 05/16/17 14:30 Urine Total Protein 8 mg/dL (1-14) 05/16/17 14:30 - VTE Documentation of Mechanical Device: Graduated compression elastic hosiery Consult Discharge Plan - Plan Referrals: Rj Pollack MD [Primary Care Provider] -
--- NOTE | 2017-05-20 17:16 | Internal Med Progress Note ---
Date of Encounter: 05/20/17 Time of Encounter: 13:55 - Assessment and plan (1) CHF (congestive heart failure) Current Visit: Yes Status: Chronic Assessment and plan: Patient reports new onset wheezing and shortness of breath that started since admission, onset 3-4 days ago. She does require supplemental oxygen, lungs are clear and diminished throughout. she is not in distress. Chest x-ray was ordered that showed pulmonary edema. Original chest x-ray on April, showed cardiomegaly and no acute abnormalities. Patient had echocardiogram on 05/14 that showed LVEF of 60-65% with moderate concentric LV hypertrophy and indeterminate diastolic function, severely dilated left atrium, moderate to severely dilated right atrium, moderate aortic stenosis and mild pulmonary hypertension. This remains largely unchanged from prior echocardiogram in Oct, 2015. Patient denies chest pain. She does have +3 pitting edema to BLE. She states that her legs look better and are at her baseline. I am unaware of what her baseline is, but pt has cellulitis and edema anyway. We will continue aspirin and statin, carvedilol and 40 mg IVP Lasix twice daily. Monitor daily weights, strict I and 0, fluid restriction 1.5L, and low sodium diet. Qualifiers: Congestive heart failure type: diastolic Congestive heart failure chronicity: acute on chronic Qualified Code(s): I50.33 - Acute on chronic diastolic (congestive) heart failure (2) Diabetes mellitus type II, non insulin dependent Current Visit: Yes Status: Chronic Assessment and plan: Patient is getting sliding scale insulin, Accu-Cheks before meals at bedtime. Continue diabetic diet, A1c completed. A1c is 5.8%. (3) Hypertension Current Visit: Yes Status: Chronic Assessment and plan: The pressure is well controlled in the inpatient setting. Continue home medications. Continue to monitor vital signs per admission orders. Qualifiers: Hypertension type: secondary to other renal disorders Qualified Code(s): I15.1 - Hypertension secondary to other renal disorders (4) DVT prophylaxis Current Visit: Yes Status: Acute Assessment and plan: Heparin subcutaneous. (5) Acute and chronic respiratory failure Current Visit: Yes Status: Chronic Assessment and plan: Patient is requiring supplemental oxygen above her normal demand. Continue to monitor and titrate to maintain sats greater than 92%. Qualifiers: Respiratory failure complication: unspecified whether with hypoxia or hypercapnia Qualified Code(s): J96.20 - Acute and chronic respiratory failure , unspecified whether with hypoxia or hypercapnia (6) Morbid obesity Current Visit: Yes Status: Chronic Assessment and plan: Chronic. Lifestyle changes. (7) Cellulitis Current Visit: Yes Status: Acute Assessment and plan: 1. Nonpurulent bilateral lower extremity cellulitis: bilateral lower extremities with diffuse erythema warmth and tenderness on admission. Left worse than right. Was being treated with oral fluconazole for suspected fungal infection. Bilateral lower extremitie Dopplers negative for DVT. No drainage to culture. Initially treated with IV Vanco, cefepime. Descalated to doxycycline as she clinically improved. Patient reports continued improvement today. She denies pain and both she and her feel that she is doing better. Redness significantly improved. Continue Miconazole ointment Doxycylcine IV Qualifiers: Site of cellulitis: extremity Site of cellulitis of extremity: lower extremity Laterality: left Qualified Code(s): L03.116 - Cellulitis of left lower limb (8) CKD (chronic kidney disease), stage III Current Visit: Yes Status: Chronic Assessment and plan: Acute on chronic. Patient is being followed by nephrology. I appreciate consultation and recommendations. She is adding albumin to diuretic regimen As for the hyperkalemia, Aldactone has been stopped and a renal diet is advised. Kayexelate 30g - Time Spent With Patient less than 15 minutes - Subjective Interval history: As was seen and assessed at 1355 today. She is alert, pleasant, at bedside. She is resting in bed and has questions about course of stay and overall health. She reports improvement in her legs both in the redness and the pain. Patient reports that she has had a cough recently that is new since she has been here. Lungs clear and diminished in posterior martinez and encouraged pt to ask for prn nebulizer. She denies headache, nausea, vomiting, diaphoresis, diarrhea, constipation, abdominal pain. She denies dizziness, or near syncope. She denies chest pain or productive cough. - Constitutional Vitals: Temp Pulse Resp BP Pulse Ox 97.5 F L 70 28 156/67 90 05/20/17 15:30 05/20/17 15:30 05/20/17 15:49 05/20/17 15:30 05/20/17 15:49 General appearance: Present: A&O X 3, morbidly obese, no acute distress, answers questions appropriately - Head Head exam: Present: atraumatic, normal inspection, normocephalic - Eye Eye exam: Present: normal appearance, conjuntiva pink, sclera anicteric - Neck Neck exam general surgery: Present: supple, trachea midline. Absent: lymphadenopathy - Respiratory Respiratory exam: Present: CTAB. Absent: accessory muscle use, rales, rhonchi, wheezes - Cardiovascular Cardiovascular exam: Present: RRR, +S1, +S2. Absent: diastolic murmur, gallop, rubs, systolic murmur - GI/Abdominal GI/Abdominal exam: Present: distended, normal bowel sounds, soft, no peritoneal signs. Absent: tenderness - Extremities Exam Extremities exam: Present: normal capillary refill, warm, radial pulses palpable and symmetrical. Absent: calf tenderness, cyanotic, pedal edema - Neurological Exam Neurological exam: Present: alert, oriented X3, no focal deficits. Absent: altered, facial droop, speech deficit - Skin Skin exam: Present: dry, intact, normal color, warm. Absent: rash Internal Medicine: Result - Labs CBC & Chem 7: 05/20/17 06:36 05/20/17 06:36 Labs: Short CBC 05/20/17 Range/Units 06:36 WBC 9.4 (4.3-11.1) K/mcL Hgb 8.4 L (11.5-15.4) g/dL Hct 28.0 L (35.3-44.9) % Plt Count 270 (140-400) K/mcL BMP 05/20/17 06:36 Sodium 138 Potassium 5.3 H Chloride 98 Carbon Dioxide 31 H BUN 55 H Creatinine 2.33 H Glucose 165 H Calcium 9.4 - Impressions Impressions Chest X-Ray 05/19/17 18:06 IMPRESSION: Mild pulmonary edema. D/ / Ryna Marrero MD / Ryan Marrero MD Interpreting Provider: Ryan Marrero MD - VTE Documentation of Mechanical Device: Graduated compression elastic hosiery Consult Discharge Plan - Plan Referrals: Rj Pollack MD [Primary Care Provider] -
[2017-05-21] MEDS: methylPREDNISolone 125 MG/2 ML VIAL IVP SCH ×2 (01:00→08:06)
[2017-05-21] MEDS: Doxycycline 100 MG in 0.9 % Sodium Chloride 150 ML IVPB SCH ×2 (02:35→15:20)
[2017-05-21] MEDS: Ipratropium/Albuterol Neb 3 ML IH SCH ×6 (03:59→23:30)
[2017-05-21] MEDS: *HR* Heparin 5,000 UNIT/ML VIAL SQ SCH ×3 (06:29→20:15)
[2017-05-21] MEDS: Albumin 25% 25gram/100mL 25 GM/100 ML IV.SOLN IVPB SCH (06:29)
[2017-05-21 06:31] LABS: Basophils % 0.1 %; Hematocrit 26.8 % (35.3-44.9); Hemoglobin 7.9 g/dL (11.5-15.4); Immature Granulocytes % 2.3 % (0-4); Lymphocytes # 0.9 K/mcL (0.6-4.6); Lymphocytes % 5.2 %; Mean Corpuscular HGB Conc 29.5 g/dL (31.6-35.5); Mean Corpuscular Hemoglobin 28.6 pg (28.0-33.3); Mean Corpuscular Volume 97.1 fL (83.0-100.0); Mean Platelet Volume 11.1 fL (9.4-12.4); Monocytes # 0.2 K/mcL (0.0-1.3); Monocytes % 1.4 %; Neutrophils # 15.7 K/mcL (1.6-8.9); Platelet Count 303 K/mcL (140-400); Red Blood Count 2.76 M/mcL (3.82-4.97); Red Cell Distribution Width 14.5 % (11.5-14.5)
[2017-05-21 06:34] LABS: Calcium 9.1 mg/dL (8.6-10.8); Potassium 5.1 mEq/L (3.5-4.5)
[2017-05-21] MEDS: Furosemide 40 MG/4 ML VIAL IVP SCH ×2 (08:07→20:15)
[2017-05-21] MEDS: Magic Mouthwash 10 ML UD Cup PO SCH ×3 (08:08→17:23)
[2017-05-21] MEDS: Aspirin Enteric Coated 81 MG Tablet PO SCH (08:08)
[2017-05-21] MEDS: Insulin LISPRO 300 UNITS/3 ML VIAL SQ SCH ×4 (08:08→20:15)
[2017-05-21] MEDS: amLODIPine 5 MG TABLET PO SCH (08:08)
[2017-05-21] MEDS: Miconazole 2% ointment 114 GM TUBE TP SCH ×2 (08:09→20:16)
--- NOTE | 2017-05-21 11:09 | Nephrology Progress Note ---
Date of Encounter: 05/21/17 - Assessment and Plan (1) Chronic kidney disease (CKD), stage IV (severe) Current Visit: Yes Status: Chronic SCr worse, will add albumin to diuretic regimen UOP not impressive at 600cc in the past 24hrs (2) Lower extremity edema Current Visit: Yes Status: Chronic (3) Cellulitis Current Visit: Yes Status: Acute Qualifiers: Site of cellulitis: extremity Site of cellulitis of extremity: lower extremity Laterality: left Qualified Code(s): L03.116 - Cellulitis of left lower limb (4) Hyperkalemia Current Visit: Yes Status: Acute Potassium noted elevated at 4.9, will stop aldactone Renal diet advised Objective - Vital Signs Vital signs: Vital Signs Temp Pulse Resp BP Pulse Ox 05/21/17 08:02 18 92 05/21/17 07:11 97.5 F L 69 16 136/60 90 05/21/17 03:59 18 95 05/20/17 23:41 16 94 05/20/17 22:45 98.0 F 67 16 158/69 96 05/20/17 20:13 16 94 05/20/17 19:12 97.5 F L 73 15 132/63 93 05/20/17 15:49 28 90 05/20/17 15:30 97.5 F L 70 20 156/67 93 05/20/17 11:58 16 92 05/20/17 11:34 97.2 F L 66 16 139/67 93 Intake and Output 05/20/17 05/21/17 05/21/17 23:59 07:59 15:59 Intake Total 237 / 237 0 / 0 120 / 120 Output Total 300 / 300 200 / 200 Balance 237 / 237 -300 / -300 -80 / -80 Intake: Oral 237 / 237 0 / 0 120 / 120 Output: Urine 300 / 300 200 / 200 Other: Meal Breakfast Percent of Meal Consumed 50% Stool Size Moderate Stool Consistency soft Stool Color Brown # Bowel Movement Diapers 1 Weight 139.525 kg Blood Glucose* 333 231 Patient Weight 05/21/17 23:59 Weight 139.525 kg - Lab 05/21/17 05:47 05/21/17 05:47 Most recent lab results Calcium 9.1 mg/dL (8.6-10.8) 05/21/17 05:47 Urine Creatinine 48 mg/dL 05/16/17 14:30 Urine Total Protein 8 mg/dL (1-14) 05/16/17 14:30 - VTE Documentation of Mechanical Device: Graduated compression elastic hosiery Consult Discharge Plan - Plan Referrals: Rj Pollack MD [Primary Care Provider] -
[2017-05-21 12:09] LABS: ABG Base Excess 9 mEq/L (-2 to 3); ABG HCO3 36 mEq/L (21-27); ABG Oxygen Saturation 91 % (95-98); ABG PCO2 62 mmHg (35-45); ABG PH 7.37 pH Units (7.32-7.45); ABG PO2 64 mmHg (85-104); ABG TCO2 38 mEq/L (20-26)
--- NOTE | 2017-05-21 17:27 | Internal Med Progress Note ---
Date of Encounter: 05/21/17 Time of Encounter: 15:20 - Assessment and plan (1) CHF (congestive heart failure) Current Visit: Yes Status: Chronic Assessment and plan: Patient reports new onset wheezing and shortness of breath that started since admission, onset 3-4 days ago. She does require supplemental oxygen, lungs are clear and diminished throughout. she is not in distress. Chest x-ray was ordered that showed pulmonary edema. Original chest x-ray on April, showed cardiomegaly and no acute abnormalities. Patient had echocardiogram on 05/14 that showed LVEF of 60-65% with moderate concentric LV hypertrophy and indeterminate diastolic function, severely dilated left atrium, moderate to severely dilated right atrium, moderate aortic stenosis and mild pulmonary hypertension. This remains largely unchanged from prior echocardiogram in Oct, 2015. Patient denies chest pain. She does have +3 pitting edema to BLE. She states that her legs look better and are at her baseline. I am unaware of what her baseline is, but pt has cellulitis and edema anyway. We will continue aspirin and statin, carvedilol and 40 mg IVP Lasix twice daily. Monitor daily weights, strict I and 0, fluid restriction 1 liter (reassess effectiveness tomorrow), and low sodium diet. Qualifiers: Congestive heart failure type: diastolic Congestive heart failure chronicity: acute on chronic Qualified Code(s): I50.33 - Acute on chronic diastolic (congestive) heart failure (2) Diabetes mellitus type II, non insulin dependent Current Visit: Yes Status: Chronic Assessment and plan: Patient is getting sliding scale insulin, Accu-Cheks before meals at bedtime. Continue diabetic diet, A1c completed. A1c is 5.8%. (3) Hypertension Current Visit: Yes Status: Chronic Assessment and plan: The pressure is well controlled in the inpatient setting. Continue home medications. Continue to monitor vital signs per admission orders. Hydralazine 10 mg IV push every 6 hours as needed for systolic blood pressure greater than 180 Qualifiers: Hypertension type: secondary to other renal disorders Qualified Code(s): I15.1 - Hypertension secondary to other renal disorders (4) DVT prophylaxis Current Visit: Yes Status: Acute Assessment and plan: Heparin subcutaneous. Encourage patient to get up to chair, sit on the side of bed. (5) Acute and chronic respiratory failure Current Visit: Yes Status: Chronic Assessment and plan: Patient is requiring supplemental oxygen above her normal demand. Continue to monitor and titrate to maintain sats greater than 92%. Patient reports increasing shortness of breath. Not surprisingly, patient sats increase when she is sitting up on the side of the bed versus lying down. We attempted BiPAP today, patient refused. ABG completed pH 7.37 PCO2 62 PO2 64 bicarbonate 36 CO2 38 O2 sat 91. Lungs still remain clear, patient is requiring 6 L high flow oxygen. VQ scan has been ordered and is not completed yet. Continue telemetry Continue to titrate O2 as needed. Encourage BiPAP if indicated. Qualifiers: Respiratory failure complication: unspecified whether with hypoxia or hypercapnia Qualified Code(s): J96.20 - Acute and chronic respiratory failure , unspecified whether with hypoxia or hypercapnia (6) Morbid obesity Current Visit: Yes Status: Chronic Assessment and plan: Chronic. Lifestyle changes. (7) Cellulitis Current Visit: Yes Status: Acute Assessment and plan: 1. Nonpurulent bilateral lower extremity cellulitis: bilateral lower extremities with diffuse erythema warmth and tenderness on admission. Left worse than right. Was being treated with oral fluconazole for suspected fungal infection. Bilateral lower extremitie Dopplers negative for DVT. No drainage to culture. Initially treated with IV Vanco, cefepime. Descalated to doxycycline as she clinically improved. Patient reports continued improvement today. She denies pain and both she and her feel that she is doing better. Redness significantly improved. Continue Miconazole ointment Doxycylcine IV Wound care to see patient tomorrow. Qualifiers: Site of cellulitis: extremity Site of cellulitis of extremity: lower extremity Laterality: left Qualified Code(s): L03.116 - Cellulitis of left lower limb (8) CKD (chronic kidney disease), stage III Current Visit: Yes Status: Chronic Assessment and plan: Acute on chronic. Patient is being followed by nephrology. I appreciate consultation and recommendations. She is adding albumin to diuretic regimen As for the hyperkalemia, Aldactone has been stopped and a renal diet is advised. Patient was drinking 2 L of country time lemonade in her room. As advised by nephrology, there is a large amount of supplemental potassium. Patient has been made aware and instructed not to drink anymore. Potassium remains at 5.1 today, will give 30 g more Kayexalate and monitor again in the morning. Kayexelate 30g - Time Spent With Patient less than 15 minutes - Subjective Interval history: As was seen and assessed at 1520 today. She is alert, at bedside. She is sitting up in bed receiving a nebulizer.. She reports improvement in her legs both in the redness and the pain. Patient reports no change in cough and reports increased shortness of breath. Lungs clear and diminished in posterior martinez. She denies headache, nausea, vomiting, diaphoresis, diarrhea, constipation, abdominal pain. She denies dizziness, or near syncope. She denies chest pain or productive cough. - Constitutional Vitals: Temp Pulse Resp BP Pulse Ox 97.3 F L 77 16 154/68 92 05/21/17 15:17 05/21/17 15:17 05/21/17 15:17 05/21/17 15:17 05/21/17 15:17 General appearance: Present: A&O X 3, morbidly obese, no acute distress, answers questions appropriately - Head Head exam: Present: atraumatic, normal inspection, normocephalic - Eye Eye exam: Present: conjuntiva pink, sclera anicteric - Neck Neck exam general surgery: Present: supple, trachea midline. Absent: lymphadenopathy - Respiratory Respiratory exam: Present: decreased breath sounds, CTAB. Absent: accessory muscle use, chest wall tenderness, rales, rhonchi, wheezes - Cardiovascular Cardiovascular exam: Present: RRR, +S1, +S2. Absent: diastolic murmur, gallop, rubs, systolic murmur - GI/Abdominal GI/Abdominal exam: Present: distended, normal bowel sounds, soft, no peritoneal signs. Absent: tenderness Additional comments: Abdomen rounded and obese. - Extremities Exam Extremities exam: Present: pedal edema, warm, radial pulses palpable and symmetrical. Absent: calf tenderness, cyanotic, normal inspection - Neurological Exam Neurological exam: Present: alert, oriented X3, no focal deficits. Absent: facial droop, speech deficit - Skin Skin exam: Present: dry, intact, normal color, warm. Absent: rash Internal Medicine: Result - Labs CBC & Chem 7: 05/21/17 05:47 05/21/17 05:47 Labs: Short CBC 05/21/17 Range/Units 05:47 WBC 17.3 H D (4.3-11.1) K/mcL Hgb 7.9 L (11.5-15.4) g/dL Hct 26.8 L (35.3-44.9) % Plt Count 303 (140-400) K/mcL Neutrophils # 15.7 H (1.6-8.9) K/mcL BMP 05/21/17 05:47 Sodium 138 Potassium 5.1 H Chloride 97 L Carbon Dioxide 32 H BUN 60 H Creatinine 2.42 H Glucose 220 H Calcium 9.1 - ABG Interpretation ABG results: ABG ABG pH 7.37 pH Units (7.32-7.45) 05/21/17 12:02 ABG pCO2 62 mmHg (35-45) H 05/21/17 12:02 ABG pO2 64 mmHg (85-104) L 05/21/17 12:02 ABG O2 Saturation 91 % (95-98) L 05/21/17 12:02 - VTE Documentation of Mechanical Device: Graduated compression elastic hosiery Consult Discharge Plan - Plan Referrals: Rj Pollack MD [Primary Care Provider] -
[2017-05-22] MEDS: Doxycycline 100 MG in 0.9 % Sodium Chloride 150 ML IVPB SCH ×2 (02:29→15:34)
[2017-05-22] MEDS: Ipratropium/Albuterol Neb 3 ML IH SCH ×5 (03:37→19:50)
[2017-05-22 04:07] LABS: Basophils % 0.1 %; Hematocrit 26.2 % (35.3-44.9); Hemoglobin 7.7 g/dL (11.5-15.4); Immature Granulocytes % 4.4 % (0-4); Immature Platelets 6.1 % (1.1-6.1); Lymphocytes # 0.9 K/mcL (0.6-4.6); Lymphocytes % 4.3 %; Mean Corpuscular HGB Conc 29.4 g/dL (31.6-35.5); Mean Corpuscular Hemoglobin 28.7 pg (28.0-33.3); Mean Corpuscular Volume 97.8 fL (83.0-100.0); Mean Platelet Volume 10.8 fL (9.4-12.4); Monocytes # 0.7 K/mcL (0.0-1.3); Monocytes % 3.4 %; Neutrophils # 18.4 K/mcL (1.6-8.9); Nucleated Red Blood Cells 0.1 /100 WBC (0); Platelet Count 327 K/mcL (140-400); Red Blood Count 2.68 M/mcL (3.82-4.97); Red Cell Distribution Width 14.6 % (11.5-14.5); Segmented Neutrophils % 87.8 %
[2017-05-22 04:21] LABS: Calcium 9.3 mg/dL (8.6-10.8); Potassium 4.2 mEq/L (3.5-4.5)
[2017-05-22] MEDS: *HR* Heparin 5,000 UNIT/ML VIAL SQ SCH ×3 (06:45→22:13)
[2017-05-22] MEDS ORDERED: predniSONE 20 MG TABLET PO SCH (09:00)
[2017-05-22] MEDS: Furosemide 40 MG/4 ML VIAL IVP SCH ×2 (09:06→19:55)
[2017-05-22] MEDS: Magic Mouthwash 10 ML UD Cup PO SCH ×3 (09:06→17:45)
[2017-05-22] MEDS: Aspirin Enteric Coated 81 MG Tablet PO SCH (09:07)
[2017-05-22] MEDS: amLODIPine 5 MG TABLET PO SCH (09:07)
[2017-05-22] MEDS: Insulin LISPRO 300 UNITS/3 ML VIAL SQ SCH ×4 (09:07→19:55)
[2017-05-22] MEDS: Albumin 25% 25gram/100mL 25 GM/100 ML IV.SOLN IVPB SCH (09:08)
[2017-05-22] MEDS: Miconazole 2% ointment 114 GM TUBE TP SCH ×2 (09:08→22:14)
[2017-05-22] MEDS ORDERED: Furosemide 20 MG/2 ML VIAL IVP ONE (11:04)
--- NOTE | 2017-05-22 13:25 | Internal Med Progress Note ---
Date of Encounter: 05/22/17 Time of Encounter: 13:25 - Assessment and plan (1) CHF (congestive heart failure) Current Visit: Yes Status: Chronic Assessment and plan: Acute pulmonary edema secondary to acute diastolic CHF exacerbation Current Visit: Yes Status: Chronic Assessment and plan: Chest x-ray was ordered that showed pulmonary edema. Original chest x-ray on April, showed cardiomegaly and no acute abnormalities. Patient had echocardiogram on 05/14 that showed LVEF of 60-65% with moderate concentric LV hypertrophy and indeterminate diastolic function, severely dilated left atrium, moderate to severely dilated right atrium, moderate aortic stenosis and mild pulmonary hypertension. This remains largely unchanged from prior echocardiogram in Oct, 2015. Patient denies chest pain. She does have +3 pitting edema to BLE. She states that her legs look better and are at her baseline. I am unaware of what her baseline is, but pt has cellulitis and edema anyway. We will continue aspirin and statin, carvedilol and 40 mg IVP Lasix twice daily. Order a third dose of 20 mg of IV Lasix after receiving the albumin Monitor daily weights, strict I and 0, fluid restriction 1 liter (reassess effectiveness tomorrow), and low sodium diet. Taper prednisone down to 20 mg daily to avoid fluid retention due to steroids Qualifiers: Congestive heart failure type: diastolic Congestive heart failure chronicity: acute on chronic Qualified Code(s): I50.33 - Acute on chronic diastolic (congestive) heart failure (2) Diabetes mellitus type II, non insulin dependent Current Visit: Yes Status: Chronic Assessment and plan: Patient is getting sliding scale insulin, Accu-Cheks before meals at bedtime. Continue diabetic diet, A1c completed. A1c is 5.8%. (3) Hypertension Current Visit: Yes Status: Chronic Assessment and plan: The pressure is well controlled in the inpatient setting. Continue home medications. Continue to monitor vital signs per admission orders. Hydralazine 10 mg IV push every 6 hours as needed for systolic blood pressure greater than 180 Qualifiers: Hypertension type: secondary to other renal disorders Qualified Code(s): I15.1 - Hypertension secondary to other renal disorders (4) chronic kidney disease a stage IV Current Visit: Yes Status: Acute Assessment and plan: Followed by nephrology As for the hyperkalemia, Aldactone has been stopped and a renal diet is advised. Patient was drinking 2 L of country time lemonade in her room. As advised by nephrology, there is a large amount of supplemental potassium. Decrease fluid intake Potassium was 5.1 today, Kayexalate given (5) Acute and chronic respiratory failure Current Visit: Yes Status: Chronic Assessment and plan: Patient is requiring supplemental oxygen above her normal demand. Continue to monitor and titrate to maintain sats greater than 92%. Patient reports increasing shortness of breath. Not surprisingly, patient sats increase when she is sitting up on the side of the bed versus lying down. We attempted BiPAP today, patient refused. ABG completed pH 7.37 PCO2 62 PO2 64 bicarbonate 36 CO2 38 O2 sat 91. Lungs still remain clear, patient is requiring 6 L high flow oxygen. VQ scan showed low probability of PE Continue telemetry Continue to titrate O2 as needed. Encourage BiPAP if indicated. Qualifiers: Respiratory failure complication: unspecified whether with hypoxia or hypercapnia Qualified Code(s): J96.20 - Acute and chronic respiratory failure , unspecified whether with hypoxia or hypercapnia (6) Morbid obesity Current Visit: Yes Status: Chronic Assessment and plan: Chronic. Lifestyle changes. (7) Cellulitis Current Visit: Yes Status: Acute Assessment and plan: Nonpurulent bilateral lower extremity cellulitis: bilateral lower extremities with diffuse erythema warmth and tenderness on admission. Left worse than right. Was being treated with oral fluconazole for suspected fungal infection. Bilateral lower extremitie Dopplers negative for DVT. No drainage to culture. Initially treated with IV Vanco, cefepime. Continue doxycycline day 5 Patient reports continued improvement today. She denies pain and both she and her feel that she is doing better. Redness significantly improved. Continue Miconazole ointment Doxycylcine IV Wound care to see patient tomorrow. Qualifiers: Site of cellulitis: extremity Site of cellulitis of extremity: lower extremity Laterality: left Qualified Code(s): L03.116 - Cellulitis of left lower limb Qualifiers: Congestive heart failure type: diastolic Congestive heart failure chronicity: acute on chronic Qualified Code(s): I50.33 - Acute on chronic diastolic (congestive) heart failure - Subjective Interval history: Feeling still very short of breath, denies chest pain, no abdominal pain, no fevers or chills. No diarrhea - Constitutional Vitals: Temp Pulse Resp BP Pulse Ox 97.8 F 66 18 120/54 91 05/22/17 12:00 05/22/17 12:00 05/22/17 12:00 05/22/17 12:00 05/22/17 12:00 General appearance: Present: A&O X 3, morbidly obese, no acute distress, answers questions appropriately - Head Head exam: Present: atraumatic, normocephalic - Eye Eye exam: Present: PERRL, conjuntiva pink, sclera anicteric Pupils: Present: PERRL - Neck Neck exam general surgery: Present: supple, trachea midline. Absent: lymphadenopathy - Respiratory Respiratory exam: Present: CTAB, rales (Bibasilar fine crackles). Absent: accessory muscle use, rhonchi, wheezes - Cardiovascular Cardiovascular exam: Present: RRR, +S1, +S2. Absent: diastolic murmur, gallop, rubs, systolic murmur - GI/Abdominal GI/Abdominal exam: Present: normal bowel sounds, soft, no peritoneal signs. Absent: distended, tenderness - Extremities Exam Extremities exam: Present: warm, radial pulses palpable and symmetrical. Absent : calf tenderness, cyanotic, pedal edema - Neurological Exam Neurological exam: Present: CN II-XII intact, oriented X3, no focal deficits. Absent: pronater drift, facial droop, speech deficit - Skin Skin exam: Present: dry. Absent: intact (+2 pitting edema both lower extremities, erythema has improved slowly) Internal Medicine: Result - Labs CBC & Chem 7: 05/22/17 03:30 05/22/17 03:30 Labs: Short CBC 05/22/17 Range/Units 03:30 WBC 21.0 H (4.3-11.1) K/mcL Hgb 7.7 L (11.5-15.4) g/dL Hct 26.2 L (35.3-44.9) % Plt Count 327 (140-400) K/mcL Neutrophils # 18.4 H (1.6-8.9) K/mcL BMP 05/22/17 03:30 Sodium 140 Potassium 4.2 Chloride 96 L Carbon Dioxide 36 H BUN 75 H Creatinine 2.58 H Glucose 246 H Calcium 9.3 - ABG Interpretation ABG results: ABG ABG pH 7.37 pH Units (7.32-7.45) 05/21/17 12:02 ABG pCO2 62 mmHg (35-45) H 05/21/17 12:02 ABG pO2 64 mmHg (85-104) L 05/21/17 12:02 ABG O2 Saturation 91 % (95-98) L 05/21/17 12:02 - Impressions Impressions Chest X-Ray 05/22/17 00:00 IMPRESSION: Pulmonary edema. Increasing linear basilar opacity, suggestive of superimposed atelectasis. D/ / Beto Poon MD / Beto Poon MD Interpreting Provider: Beto Poon MD Pulmonary Perfusion Imaging 05/22/17 07:00 IMPRESSION: Low probability for pulmonary embolism. D/ / Hosea Garcia MD / Hosea Garcia MD Interpreting Provider: Hosea Garcia MD - VTE Documentation of Mechanical Device: Graduated compression elastic hosiery Consult Discharge Plan - Plan Referrals: Rj Pollack MD [Primary Care Provider] -
[2017-05-23] MEDS: Ipratropium/Albuterol Neb 3 ML IH SCH ×6 (00:05→20:15)
[2017-05-23] MEDS: Doxycycline 100 MG in 0.9 % Sodium Chloride 150 ML IVPB SCH ×2 (03:27→17:55)
[2017-05-23 05:06] LABS: Hematocrit 26.7 % (35.3-44.9); Hemoglobin 7.9 g/dL (11.5-15.4); Mean Corpuscular HGB Conc 29.6 g/dL (31.6-35.5); Mean Corpuscular Hemoglobin 28.4 pg (28.0-33.3); Mean Platelet Volume 10.8 fL (9.4-12.4); Platelet Count 324 K/mcL (140-400); Red Blood Count 2.78 M/mcL (3.82-4.97); Red Cell Distribution Width 14.8 % (11.5-14.5)
[2017-05-23 05:26] LABS: Calcium 8.9 mg/dL (8.6-10.8); Potassium 3.9 mEq/L (3.5-4.5)
[2017-05-23] MEDS ORDERED: Albumin 25% 25gram/100mL 25 GM/100 ML IV.SOLN IVPB SCH (06:15)
[2017-05-23] MEDS: *HR* Heparin 5,000 UNIT/ML VIAL SQ SCH ×3 (06:19→21:08)
--- NOTE | 2017-05-23 07:51 | Internal Med Progress Note ---
Date of Encounter: 05/23/17 Time of Encounter: 07:47 - Assessment and plan (1) CHF (congestive heart failure) Current Visit: Yes Status: Chronic Assessment and plan: Current Visit: Yes Status: Chronic Assessment and plan: Acute on chronic hypoxic respiratory failure secondary to acute diastolic CHF exacerbation in combination with acute COPD exacerbation likely secondary to acute bacterial bronchitis Chest x-ray showed pulmonary edema. Original chest x-ray on April, showed cardiomegaly and no acute abnormalities. Patient had echocardiogram on 05/14 that showed LVEF of 60-65% with moderate concentric LV hypertrophy and indeterminate diastolic function, severely dilated left atrium, moderate to severely dilated right atrium, moderate aortic stenosis and mild pulmonary hypertension. This remains largely unchanged from prior echocardiogram in Oct, 2015. continue aspirin and statin, carvedilol and increased dose of Lasix up to 40 mg 3 times a day. 4 Monitor daily weights, strict I and 0, fluid restriction 1 liter (reassess effectiveness tomorrow), and low sodium diet. Restart Solu-Medrol IV Qualifiers: Congestive heart failure type: diastolic Congestive heart failure chronicity: acute on chronic Qualified Code(s): I50.33 - Acute on chronic diastolic (congestive) heart failure (2) Diabetes mellitus type II, non insulin dependent Current Visit: Yes Status: Chronic Assessment and plan: Patient is getting sliding scale insulin, Accu-Cheks before meals at bedtime. Continue diabetic diet, A1c completed. A1c is 5.8%. (3) Hypertension Current Visit: Yes Status: Chronic Assessment and plan: The pressure is well controlled in the inpatient setting. Continue home medications. Continue to monitor vital signs per admission orders. Hydralazine 10 mg IV push every 6 hours as needed for systolic blood pressure greater than 180 Qualifiers: Hypertension type: secondary to other renal disorders Qualified Code(s): I15.1 - Hypertension secondary to other renal disorders (4) chronic kidney disease a stage IV Current Visit: Yes Status: Acute Assessment and plan: Followed by nephrology As for the hyperkalemia, Aldactone was stopped and a renal diet is advised. Decrease fluid intake Potassium was 5.1 , Kayexalate given (5) Acute and chronic respiratory failure Current Visit: Yes Status: Chronic Assessment and plan: Patient is requiring supplemental oxygen above her normal demand. Continue to monitor and titrate to maintain sats greater than 92%. The patient has refused BiPAP ABG completed pH 7.37 PCO2 62 PO2 64 bicarbonate 36 CO2 38 O2 sat 91. VQ scan showed low probability of PE Qualifiers: Respiratory failure complication: unspecified whether with hypoxia or hypercapnia Qualified Code(s): J96.20 - Acute and chronic respiratory failure , unspecified whether with hypoxia or hypercapnia (6) Morbid obesity Current Visit: Yes Status: Chronic Assessment and plan: Chronic. Lifestyle changes. (7) Cellulitis Current Visit: Yes Status: Acute Assessment and plan: Nonpurulent bilateral lower extremity cellulitis: bilateral lower extremities with diffuse erythema warmth and tenderness on admission. Left worse than right. Was being treated with oral fluconazole for suspected fungal infection. Bilateral lower extremitie Dopplers negative for DVT. Initially treated with IV Vanco, cefepime. Continue doxycycline day 6 Continue Miconazole ointment Wound care Qualifiers: Site of cellulitis: extremity Site of cellulitis of extremity: lower extremity Laterality: left Qualified Code(s): L03.116 - Cellulitis of left lower limb Qualifiers: Congestive heart failure type: diastolic Congestive heart failure chronicity: acute on chronic Qualified Code(s): I50.33 - Acute on chronic diastolic (congestive) heart failure - Subjective Interval history: Feeling very short of breath, denies chest pain, no abdominal pain, no fevers or chills. No diarrhea. Wheezing loudly - Constitutional Vitals: Temp Pulse Resp BP Pulse Ox 97.5 F L 70 16 134/63 91 05/23/17 07:30 05/23/17 07:30 05/23/17 07:40 05/23/17 07:30 05/23/17 07:40 General appearance: Present: A&O X 3, morbidly obese, no acute distress, answers questions appropriately - Head Head exam: Present: atraumatic, normocephalic - Eye Eye exam: Present: PERRL, conjuntiva pink, sclera anicteric Pupils: Present: PERRL - Neck Neck exam general surgery: Present: supple, trachea midline. Absent: lymphadenopathy - Respiratory Respiratory exam: Present: CTAB, wheezes (Diffuse wheezing and bibasilar crackles). Absent: accessory muscle use, rales, rhonchi - Cardiovascular Cardiovascular exam: Present: RRR, +S1, +S2. Absent: diastolic murmur, gallop, rubs, systolic murmur - GI/Abdominal GI/Abdominal exam: Present: normal bowel sounds, soft, no peritoneal signs. Absent: distended, tenderness - Extremities Exam Extremities exam: Present: warm, radial pulses palpable and symmetrical. Absent : calf tenderness, cyanotic, pedal edema - Neurological Exam Neurological exam: Present: CN II-XII intact, oriented X3, no focal deficits. Absent: pronater drift, facial droop, speech deficit - Skin Skin exam: Present: dry. Absent: intact (Left lower extremity erythema improving, +2 pitting edema in both lower extremities) Internal Medicine: Result - Labs CBC & Chem 7: 05/23/17 03:55 05/23/17 03:55 Labs: Short CBC 05/23/17 Range/Units 03:55 WBC 16.3 H (4.3-11.1) K/mcL Hgb 7.9 L (11.5-15.4) g/dL Hct 26.7 L (35.3-44.9) % Plt Count 324 (140-400) K/mcL BMP 05/23/17 03:55 Sodium 144 Potassium 3.9 Chloride 98 Carbon Dioxide 36 H BUN 80 H Creatinine 2.25 H Glucose 218 H Calcium 8.9 - ABG Interpretation ABG results: ABG ABG pH 7.37 pH Units (7.32-7.45) 05/21/17 12:02 ABG pCO2 62 mmHg (35-45) H 05/21/17 12:02 ABG pO2 64 mmHg (85-104) L 05/21/17 12:02 ABG O2 Saturation 91 % (95-98) L 05/21/17 12:02 - Impressions Impressions Chest X-Ray 05/22/17 00:00 IMPRESSION: Pulmonary edema. Increasing linear basilar opacity, suggestive of superimposed atelectasis. D/ / Beto Poon MD / Beto Poon MD Interpreting Provider: Beto Poon MD Pulmonary Perfusion Imaging 05/22/17 07:00 IMPRESSION: Low probability for pulmonary embolism. D/ / Hosea Garcia MD / Hosea Garcia MD Interpreting Provider: Hosea Garcia MD - VTE Documentation of Mechanical Device: Graduated compression elastic hosiery Consult Discharge Plan - Plan Referrals: Rj Pollack MD [Primary Care Provider] -
[2017-05-23] MEDS ORDERED: predniSONE 20 MG TABLET PO SCH (09:00)
[2017-05-23] MEDS: Magic Mouthwash 10 ML UD Cup PO SCH ×3 (09:03→15:29)
[2017-05-23] MEDS: Aspirin Enteric Coated 81 MG Tablet PO SCH (09:03)
[2017-05-23] MEDS: amLODIPine 5 MG TABLET PO SCH (09:03)
[2017-05-23] MEDS: MethylPREDNISolone 40 MG/ML VIAL IVP SCH ×3 (09:03→23:24)
[2017-05-23] MEDS: Insulin LISPRO 300 UNITS/3 ML VIAL SQ SCH ×4 (09:04→20:51)
[2017-05-23] MEDS: Furosemide 40 MG/4 ML VIAL IVP SCH ×2 (09:16→12:30)
[2017-05-23] MEDS: Miconazole 2% ointment 114 GM TUBE TP SCH ×2 (12:30→20:53)
--- NOTE | 2017-05-23 12:37 | Nephrology Progress Note ---
Date of Encounter: 05/23/17 Time of Encounter: 12:34 - Assessment and Plan (1) Chronic kidney disease (CKD), stage IV (severe) Current Visit: Yes Status: Chronic Scr 2.25, GFR 21 back at baseline Caution with increase in Lasix IV from BID to TID ordered today UOP 300ml Avoid nephrotoxins if possible Agree with fluid restriction (2) CHF (congestive heart failure) Current Visit: Yes Status: Chronic per primary team Qualifiers: Congestive heart failure type: diastolic Congestive heart failure chronicity: acute on chronic Qualified Code(s): I50.33 - Acute on chronic diastolic (congestive) heart failure (3) Morbid obesity Current Visit: Yes Status: Chronic per primary team Subjective Principal diagnosis: CKD stage 4, cellulitis Interval history: Patient seen and examined. Sitting up in chair. Objective - Vital Signs Vital signs: Vital Signs Temp Pulse Resp BP Pulse Ox 05/23/17 11:03 97.8 F 71 18 138/76 89 05/23/17 07:40 16 91 05/23/17 07:30 97.5 F L 70 18 134/63 90 05/23/17 04:19 97.5 F L 67 16 132/66 90 05/23/17 03:43 14 91 05/23/17 00:07 14 90 05/22/17 22:35 97.5 F L 62 16 138/64 91 05/22/17 20:16 88 05/22/17 19:52 14 91 05/22/17 19:27 98.1 F 70 15 134/56 90 05/22/17 16:01 97.8 F 74 16 157/71 91 05/22/17 15:24 20 90 Intake and Output 05/22/17 05/23/17 05/23/17 23:59 07:59 15:59 Intake Total 390 / 390 420 / 420 Output Total 350 / 350 Balance 390 / 390 70 / 70 Intake: IV Fluids 150 / 150 Doxycycline 100 MG In 0.9 % 150 / 150 Sodium Chloride 150 ML @ 150 mls/hr IVPB Q12H RAN Rx#: [id number] Oral 240 / 240 420 / 420 Output: Urine 350 / 350 Other: Meal Dinner Percent of Meal Consumed 75% Stool Size Small Stool Consistency formed # Voids 2 # Bowel Movements 1 Weight 141.249 kg Blood Glucose* 303 257 231 Patient Weight 05/23/17 23:59 Weight 141.249 kg - General Appearance General appearance: Present: obese EENT: Present: ATNC, mucous membranes moist, hearing intact, vision intact Neck: Present: supple Respiratory: Present: wheezing, course breath sounds Cardiology: Present: edema, normal S1, normal S2 Gastrointestinal: Present: no tenderness, obese Integumentary: Present: warm and dry Neurologic: Present: alert and oriented x3 Psychiatric: Present: mood/affect appropriate, cooperative - Lab 05/23/17 03:55 05/23/17 03:55 Most recent lab results ABG pH 7.37 pH Units (7.32-7.45) 05/21/17 12:02 ABG pCO2 62 mmHg (35-45) H 05/21/17 12:02 ABG pO2 64 mmHg (85-104) L 05/21/17 12:02 ABG HCO3 36 mEq/L (21-27) H 05/21/17 12:02 ABG O2 Saturation 91 % (95-98) L 05/21/17 12:02 Calcium 8.9 mg/dL (8.6-10.8) 05/23/17 03:55 Urine Creatinine 48 mg/dL 05/16/17 14:30 Urine Total Protein 8 mg/dL (1-14) 05/16/17 14:30 - VTE Documentation of Mechanical Device: Graduated compression elastic hosiery Consult Discharge Plan - Plan Referrals: Rj Pollack MD [Primary Care Provider] -
[2017-05-23] MEDS ORDERED: Furosemide 20 MG/2 ML VIAL IVP ONE (17:09)
[2017-05-23] MEDS ORDERED: Doxycycline 100 MG in 0.9 % Sodium Chloride Mini Bag 100 ML IVPB SCH (19:00)
[2017-05-24] MEDS: Ipratropium/Albuterol Neb 3 ML IH SCH ×4 (00:45→12:22)
[2017-05-24] MEDS ORDERED: Doxycycline 100 MG in 0.9 % Sodium Chloride Mini Bag 100 ML IVPB SCH (03:00)
[2017-05-24 04:50] LABS: Hematocrit 28.1 % (35.3-44.9); Hemoglobin 8.3 g/dL (11.5-15.4); Mean Corpuscular HGB Conc 29.5 g/dL (31.6-35.5); Mean Corpuscular Hemoglobin 28.5 pg (28.0-33.3); Mean Corpuscular Volume 96.6 fL (83.0-100.0); Mean Platelet Volume 10.7 fL (9.4-12.4); Platelet Count 331 K/mcL (140-400); Red Blood Count 2.91 M/mcL (3.82-4.97); Red Cell Distribution Width 14.8 % (11.5-14.5)
[2017-05-24 04:57] LABS: Calcium 9.3 mg/dL (8.6-10.8)
[2017-05-24] MEDS: *HR* Heparin 5,000 UNIT/ML VIAL SQ SCH (05:24)
[2017-05-24 06:51] VITALS: BP 165/75
[2017-05-24] MEDS: Furosemide 40 MG/4 ML VIAL IVP SCH (06:53)
[2017-05-24] MEDS ORDERED: Furosemide 40 MG/4 ML VIAL IVP SCH (08:00)
--- NOTE | 2017-05-24 08:00 | Discharge Summary ---
Date of Encounter: 05/24/17 Time of Encounter: 07:58 - Discharge Diagnosis (1) Acute and chronic respiratory failure Priority: Primary Status: Chronic Comments: Acute on chronic hypoxic hypercapnic respiratory failure secondary to acute diastolic CHF exacerbation in combination with acute COPD exacerbation likely secondary to sepsis due to acute bacterial bronchitis and bilateral lower extremities cellulitis Qualifiers: Respiratory failure complication: unspecified whether with hypoxia or hypercapnia Qualified Code(s): J96.20 - Acute and chronic respiratory failure , unspecified whether with hypoxia or hypercapnia (2) Acute exacerbation of chronic obstructive airways disease Priority: Primary Status: Acute (3) CHF (congestive heart failure) Priority: Primary Status: Chronic Qualifiers: Congestive heart failure type: diastolic Congestive heart failure chronicity: acute on chronic Qualified Code(s): I50.33 - Acute on chronic diastolic (congestive) heart failure (4) CKD (chronic kidney disease) stage 4, GFR 15-29 ml/min Priority: Secondary Status: Acute (5) Diabetes mellitus type II, non insulin dependent Priority: Secondary Status: Chronic (6) Morbid obesity Priority: Secondary Status: Chronic - Discharge Medications Prescriptions: Doxycycline 100 mg PO BID #6 capsule Furosemide [Lasix] 60 mg PO BID #60 tablet predniSONE [PredniSONE] 10 mg PO DAILY 24 Days tablet Home Medications: Amlodipine Besylate 5 mg PO DAILY 11/06/15 [History] Aspirin Enteric Coated [Aspirin EC] 81 mg PO DAILY 11/06/15 [History] Atorvastatin [Lipitor] 10 mg PO DAILY 11/06/15 [History] Carvedilol [Coreg] 25 mg PO BID 11/06/15 [History] Ergocalciferol (VITAMIN D2) [Vitamin D2 (50,000 UNIT)] 50,000 unit PO TH [History] Glimepiride [Amaryl] 1 mg PO QPM 11/06/15 [History] Montelukast [Singulair] 10 mg PO QPM 11/06/15 [History] Albuterol Neb [Proventil Neb] 2.5 mg IH Q4HR PRN 02/20/16 [History] Spironolactone [Aldactone] 25 mg PO DAILY 05/13/17 [History] Calcitriol [Rocaltrol] 0.25 mcg PO DAILY 05/15/17 [History] Febuxostat [Uloric] 40 mg PO DAILY 05/15/17 [History] Folic Acid 1 mg PO DAILY 05/15/17 [History] Glimepiride [Amaryl] 2 mg PO QAM 05/15/17 [History] Iron Ps Cmplx/Vit B12/FA [Poly-Iron 150 Forte Capsule] 1 cap PO DAILY 05/15/17 [ History] Doxycycline 100 mg PO BID #6 capsule 05/24/17 [Rx] Furosemide [Lasix] 60 mg PO BID #60 tablet 05/24/17 [Rx] predniSONE [PredniSONE] 10 mg PO DAILY 24 Days tablet 05/24/17 [Rx] Allergies/Adverse Reactions: 3 Allergy/AdvReac Type Severity Reaction Status Date / Time NSAIDS (Non-Steroidal Allergy See Verified 05/12/17 14:53 Anti-Inflamma Comments Sulfa (Sulfonamide Allergy Hives Verified 05/12/17 14:53 Antibiotics) Procedures/tests Complete & Pending: Procedures Performed prior 72 hours Category Date Time Status NM pul vent and perfuse [NM] Stat Exams 05/22/17 07:00 Completed Date of admission: 05/13/17 11:35 Primary care physician: Rj Pollack MD Consults: 05/16/17 08:14 Consult to Nephrology [CONS] Routine Consulting Provider: Kidney Louise/NICOLE/GAYATRI/ROSAURA Reason for Consult: CKD with worsening renal function Call Completed: Yes 05/17/17 10:54 Consult to Wound Care [CONS] Routine Reason for Consult: BLE cellulitis Call Completed: No - Patient Status Disposition: Home Health Service Condition: Good Overall status at discharge: patient is progressing back to baseline - Discharge Instructions Instructions: Heart Failure (GEN), Chronic Kidney Disease (GEN), Low Sodium Diet (GEN), Fluid Restriction, Recruiter Manager (GEN) Follow Up With: Rj Pollack MD [Primary Care Provider] - Additional Instructions: Follow up with Primary care physician within 7 days. Continue 3 more days of doxycycline ( antibiotic). Taper prednisone. INcrease lasix dose to 60 mg twice a day, continue fluid restriction. - Diet and Activity Activity: increase activity as tolerated Diet: diabetic diet Hospital course: Ms. Mancera is a 71 year old female with a PMHx of COPD O 2 dep, distolic CHF , CKD4, DM not insulin dep, HTN, who presented from [facility] with a complaint of increased SOB, fevers, muscle pain . She stated that her symptoms began suddenly when she woke in the morning with neck and jaw pain which she described as dull pain and noticed that she became increasingly SOB despite using her home 2.5L of O2. She also stated she had a productive cough, chest pain, thick green sputum, and chronic LE swelling and pain that was seen by her PCP and she was given augmentin and nystatin cream . She reported no improvement with these meds. In the [facility], she was noted to have a fever of 102, respirations 20, WBC of 27, lactate 1.5. Troponin 0.06. CXR showed mild pulmonary congestion. CT abdomen/pelvis/chest showed no evidence of infectious process. Flu swab was negative. She was sent to [place] for further management. Was found to have bilateral lower extremities cellulitis, which was treated with doxycycline, developed respiratory failure due to acute diastolic CHF and COPD exacerbations, Creatinine increased up to 3.21 now back to baseline of 2.14. Had to be started on solumedrol, and her dose of lasix was increased. Was followed by nephrology. Was given the option to stay another day but prefers to be discharged home as she feels better. - Time Spent with Patient Total time spent providing and/or coordinating discharge services: Greater than 30 minutes (40 min) - Constitutional Vitals: Temp Pulse Resp BP Pulse Ox 97.7 F 69 18 165/75 88 05/24/17 06:46 05/24/17 06:46 05/24/17 06:46 05/24/17 06:46 05/24/17 06:46 General appearance: Present: A&O X 3, morbidly obese, no acute distress, answers questions appropriately - Head Head exam: Present: atraumatic, normocephalic - Eye Eye exam: Present: PERRL, conjuntiva pink, sclera anicteric Pupils: Present: PERRL - Neck Neck exam general surgery: Present: supple, trachea midline. Absent: lymphadenopathy - Respiratory Respiratory exam: Present: decreased breath sounds, CTAB. Absent: accessory muscle use, rales, rhonchi, wheezes - Cardiovascular Cardiovascular exam: Present: RRR, +S1, +S2. Absent: diastolic murmur, gallop, rubs, systolic murmur - GI/Abdominal GI/Abdominal exam: Present: normal bowel sounds, soft, no peritoneal signs. Absent: distended, tenderness - Extremities Exam Extremities exam: Present: warm, radial pulses palpable and symmetrical. Absent : calf tenderness, cyanotic, pedal edema - Neurological Exam Neurological exam: Present: CN II-XII intact, oriented X3, no focal deficits. Absent: pronater drift, facial droop, speech deficit - Skin Skin exam: Present: dry. Absent: intact Additional comments: erythema in both lower extremities has improved, +3 pitting edema has improved - VTE Documentation of Mechanical Device: Graduated compression elastic hosiery
--- NOTE | 2017-05-24 08:25 | Physician Discharge Referral ---
Home Health/Hosp Referral Info Transfer to: Home Health Provider in Charge Post Discharge: PCP - Diagnosis (1) Acute and chronic respiratory failure Status: Chronic (2) Acute exacerbation of chronic obstructive airways disease Status: Acute (3) CHF (congestive heart failure) Status: Chronic (4) CKD (chronic kidney disease) stage 4, GFR 15-29 ml/min Status: Acute (5) Diabetes mellitus type II, non insulin dependent Status: Chronic (6) Morbid obesity Status: Chronic - Respiratory Orders Oxygen / L per min (2.5) Smoking Cessation: Smoking cessation has been advised. For more information, call the [place] Tobacco Quit Line at 1-575-ILLP-NOW. - Diet/Nutrition Diet/Nutrition Orders: No Added Salt (DAILY) - Services Needed Following services are medically necessary services: Home Health Aide, Physical Therapy Home Care Orders: Follow up with Primary care physician within 7 days. Continue 3 more days of doxycycline ( antibiotic). Taper prednisone. INcrease lasix dose to 60 mg twice a day, continue fluid restriction. - Transfer Medications Prescriptions: Doxycycline 100 mg PO BID #6 capsule Furosemide [Lasix] 60 mg PO BID #60 tablet predniSONE [PredniSONE] 10 mg PO DAILY 24 Days tablet Home Medications: Amlodipine Besylate 5 mg PO DAILY 11/06/15 [History] Aspirin Enteric Coated [Aspirin EC] 81 mg PO DAILY 11/06/15 [History] Atorvastatin [Lipitor] 10 mg PO DAILY 11/06/15 [History] Carvedilol [Coreg] 25 mg PO BID 11/06/15 [History] Ergocalciferol (VITAMIN D2) [Vitamin D2 (50,000 UNIT)] 50,000 unit PO TH [History] Glimepiride [Amaryl] 1 mg PO QPM 11/06/15 [History] Montelukast [Singulair] 10 mg PO QPM 11/06/15 [History] Albuterol Neb [Proventil Neb] 2.5 mg IH Q4HR PRN 02/20/16 [History] Spironolactone [Aldactone] 25 mg PO DAILY 05/13/17 [History] Calcitriol [Rocaltrol] 0.25 mcg PO DAILY 05/15/17 [History] Febuxostat [Uloric] 40 mg PO DAILY 05/15/17 [History] Folic Acid 1 mg PO DAILY 05/15/17 [History] Glimepiride [Amaryl] 2 mg PO QAM 05/15/17 [History] Iron Ps Cmplx/Vit B12/FA [Poly-Iron 150 Forte Capsule] 1 cap PO DAILY 05/15/17 [ History] Doxycycline 100 mg PO BID #6 capsule 05/24/17 [Rx] Furosemide [Lasix] 60 mg PO BID #60 tablet 05/24/17 [Rx] predniSONE [PredniSONE] 10 mg PO DAILY 24 Days tablet 05/24/17 [Rx] Allergies/Adverse Reactions: 3 Allergy/AdvReac Type Severity Reaction Status Date / Time NSAIDS (Non-Steroidal Allergy See Verified 05/12/17 14:53 Anti-Inflamma Comments Sulfa (Sulfonamide Allergy Hives Verified 05/12/17 14:53 Antibiotics) Certification: Further, I certify that my clinical findings support that this patient is homebound (i.e. absences from home require considerable and taxing effort and are for medical reasons or mormonism services or infrequently or short duration when for other reasons) because: Homebound Reason: Patient requires assistance of a person or device to safely leave home Attestation: My signature below is to certify that this patient is under my care and that I, or nurse practitioner, or a physician's dietary assistant working with me, has a face-to -face encounter with this patient.
[2017-05-24] MEDS: amLODIPine 5 MG TABLET PO SCH (08:42)
[2017-05-24] MEDS: Aspirin Enteric Coated 81 MG Tablet PO SCH (08:42)
[2017-05-24] MEDS: MethylPREDNISolone 40 MG/ML VIAL IVP SCH (08:42)
[2017-05-24] MEDS: Magic Mouthwash 10 ML UD Cup PO SCH (08:43)
[2017-05-24] MEDS: Insulin LISPRO 300 UNITS/3 ML VIAL SQ SCH (08:43)
[2017-05-24] MEDS: Miconazole 2% ointment 114 GM TUBE TP SCH (08:45)
--- NOTE | 2017-05-24 12:36 | Nephrology Progress Note ---
Date of Encounter: 05/24/17 Time of Encounter: 12:34 - Assessment and Plan (1) CHRISTOPHE (acute kidney injury) Current Visit: No Status: Acute Patient with mild CHRISTOPHE on CKD with a renal function that has returned to baseline. She likely needs her furosemide increased to 60mg po bid on discharge, but she insists that she will wait until her follow-up with Dr. Sheppard in June before she makes an adjustment and will go back on her home regimen. I informed her to call the office if she notices increased edema or dyspnea so that her diuretic can be adjusted. She should have a BMP in one week to ensure her renal function remains stable. (2) Chronic kidney disease (CKD), stage IV (severe) Current Visit: Yes Status: Chronic See CHRISTOPHE. She will follow up in clinic in June. Subjective Principal diagnosis: CKD stage 4, cellulitis Interval history: Patient seen. Spoke with Objective - Vital Signs Vital signs: Vital Signs Temp Pulse Resp BP Pulse Ox 05/24/17 10:21 89 05/24/17 06:46 97.7 F 69 18 165/75 88 05/24/17 04:06 97.5 F L 77 18 170/72 90 05/24/17 03:47 18 90 05/24/17 00:45 16 92 05/24/17 00:00 97.5 F L 65 18 170/65 92 05/23/17 20:15 18 90 05/23/17 19:28 97.4 F L 67 18 166/73 88 05/23/17 16:41 16 91 05/23/17 15:33 75 16 89 05/23/17 14:58 98.1 F 75 18 131/64 87 Intake and Output 05/23/17 05/24/17 05/24/17 23:59 07:59 15:59 Output Total 400 / 400 150 / 150 175 / 175 Balance -400 / -400 -150 / -150 -175 / -175 Output: Urine 400 / 400 150 / 150 175 / 175 Other: Meal Breakfast Percent of Meal Consumed 100% # Voids 1 Weight 137.892 kg Blood Glucose* 329 301 Patient Weight 05/24/17 23:59 Weight 137.892 kg - General Appearance General appearance: Present: well-developed, well-nourished, obese EENT: Present: ATNC - Lab 05/24/17 03:56 05/24/17 03:56 Most recent lab results ABG pH 7.37 pH Units (7.32-7.45) 05/21/17 12:02 ABG pCO2 62 mmHg (35-45) H 05/21/17 12:02 ABG pO2 64 mmHg (85-104) L 05/21/17 12:02 ABG HCO3 36 mEq/L (21-27) H 05/21/17 12:02 ABG O2 Saturation 91 % (95-98) L 05/21/17 12:02 Calcium 9.3 mg/dL (8.6-10.8) 05/24/17 03:56 Urine Creatinine 48 mg/dL 05/16/17 14:30 Urine Total Protein 8 mg/dL (1-14) 05/16/17 14:30 - VTE Documentation of Mechanical Device: Graduated compression elastic hosiery Consult Discharge Plan - Plan Instructions: Heart Failure (GEN), Chronic Kidney Disease (GEN), Low Sodium Diet (GEN), Fluid Restriction, Nurse Informaticist (GEN) Additional Instructions: Follow up with Primary care physician within 7 days. Continue 3 more days of doxycycline ( antibiotic). Taper prednisone. INcrease lasix dose to 60 mg twice a day, continue fluid restriction. Follow-up appointments: If there is not an appointment listed below, please call your physician and schedule a follow-up appointment. If you have congestive heart failure and your symptoms return, make an appointment with your physician. Medication List: Carry an up to date list of medications you are taking at all time. We have given you an updated medication list including any new medications that you have been prescribed. Please provide that list to your primary provider Symptoms: If your condition changes or you experience any of the following symptoms, notify your physician immediately: Unusual or worsening pain, fever, persistent nausea and vomiting, bleeding, increase in swelling (especially in your legs), sudden weight gain, extreme dizziness, chest pain, increased drainage or redness from a wound or incision. Go to the emergency department if you experience a problem with breathing. Weights: If you have a history of swelling or shortness of breath, weigh yourself daily and notify your physician if you have a weight gain of two or more pounds in one day or 5 or more pounds in a week. If you experience any of the warning signs for stroke: Sudden numbness or weakness of the face, arm or leg; especially on one side of the body, sudden confusion, trouble speaking or understanding, sudden trouble seeing in one or both eyes, sudden trouble walking, dizziness, loss of balance or coordination, sudden sever headache with no cause; Call 911 or go to the emergency room. Stroke is a medical emergency. Some risk factors for stroke: Age, cigarette smoking, diabetes, excessive alcohol consumption, family history , high blood pressure, overweight, physical inactivity, prior stroke, heart attack, diagnosis of carotid artery stenosis or other artery disease. If you smoke, STOP: Smoking or tobacco use significantly increases your risk of heart and lung disease. Your chance of disease greatly increases if you continue to smoke. For more information, call the [place] tobacco quit line for smoking cessation 3-684 QUIT-NOW ( ) Referrals: Rj Pollack MD [Primary Care Provider] - 05/30/17 10:30 am (New phone number is [phone]) Prescriptions: Doxycycline 100 mg PO BID #6 capsule Furosemide [Lasix] 60 mg PO BID #60 tablet predniSONE [PredniSONE] 10 mg PO DAILY 24 Days tablet
== END 2017-05-24 12:59 | disposition home health service (06) | DRG 871 ==
LOC: 3BNU → SUATTDRO 05-13 11:35
PROVIDERS: ADMIT Internal Medicine; ATTEND Internal Medicine

== ENCOUNTER 2020-03-01 12:42 | Inpatient (IN) ==
[2020-03-01 15:07] LABS: Adenovirus Not Detected (Not Detect); Bordetella Pertussis Not Detected (Not Detect); Chlamydophila pneumoniae Not Detected (Not Detect); Coronavirus 229E Not Detected (Not Detect); Coronavirus HKU1 Not Detected (Not Detect); Coronavirus NL63 Not Detected (Not Detect); Coronavirus OC43 Not Detected (Not Detect); Human Metapneumovirus Not Detected (Not Detect); Human Rhinovirus/Enterovirus Not Detected (Not Detect); Influenza A Subtype 2009 H1 Not Detected (Not Detect); Influenza B Not Detected (Not Detect); Mycoplasma pneumoniae Not Detected (Not Detect); Parainfluenza Virus 1 Not Detected (Not Detect); Parainfluenza Virus 2 Not Detected (Not Detect); Parainfluenza Virus 3 Not Detected (Not Detect); Parainfluenza Virus 4 Not Detected (Not Detect); Respiratory Syncytial Virus Not Detected (Not Detect); SARS-CoV-2 Not Detected (Not Detect)
[2020-03-01] MEDS ORDERED: Ondansetron 4 MG/2 ML VIAL IVP PRN (16:00)
[2020-03-01] MEDS ORDERED: Naloxone 0.4 MG/ML INJ IVP PRN (16:00)
[2020-03-01] MEDS ORDERED: *HR* Heparin 5,000 UNIT/ML VIAL IVP PRN ×4 (16:04→17:48)
[2020-03-01] MEDS ORDERED: *HR* Heparin 5,000 UNIT/ML VIAL IVP ONE (16:04)
[2020-03-01] MEDS ORDERED: Albuterol 2.5 MG/3 ML NEBULIZER IH PRN (16:09)
[2020-03-01] MEDS ORDERED: Heparin 25,000UNIT/250ML 1/2NS 25,000 UNIT/250 ML IV.SOLN IVC SCH (16:15)
[2020-03-01] MEDS: Ipratropium/Albuterol Neb 3 ML IH SCH ×2 (16:18→20:01)
[2020-03-01 16:38] LABS: ABG Base Excess 2 mEq/L (-2 to 3); ABG HCO3 33 mEq/L (21-27); ABG Oxygen Saturation 94 % (95-98); ABG PCO2 92 mmHg (35-45); ABG PH 7.16 pH Units (7.32-7.45); ABG PO2 96 mmHg (85-104); ABG TCO2 36 mEq/L (20-26); Blood Gas Modality avaps; Blood Gas VT 500 cc
[2020-03-01] MEDS ORDERED: Perflutren Lipid Microsphere 1.3 ML in 0.9 % Sodium Chloride 8.7 ML IVP PRN (16:53)
[2020-03-01] MEDS ORDERED: D5% in Water 1,000 ML IVC PRN (16:55)
[2020-03-01] MEDS ORDERED: *HR* Dextrose 50 % in Water (Vial) 50 ML VIAL IVP PRN (16:55)
[2020-03-01] MEDS ORDERED: Dextrose Gel 15 GM/37.5 ML TUBE PO PRN ×2 (16:55)
[2020-03-01] MEDS ORDERED: Azithromycin 500 MG in 0.9 % Sodium Chloride 250 ML IVPB SCH (17:00)
[2020-03-01 17:03] LABS: Heparin anti-factor XA UFH 0.71 IU/mL (0.30-0.70)
[2020-03-01 17:04] LABS: Prothrombin Time 11.7 Seconds (9.4-12.1)
[2020-03-01 17:19] LABS: ABG Base Excess 3 mEq/L (-2 to 3); ABG HCO3 33 mEq/L (21-27); ABG Oxygen Saturation 95 % (95-98); ABG PCO2 87 mmHg (35-45); ABG PH 7.19 pH Units (7.32-7.45); ABG PO2 95 mmHg (85-104); ABG TCO2 36 mEq/L (20-26); Blood Gas Modality avaps; Blood Gas VT 550 cc
[2020-03-01] MEDS: cefTRIAXone 1,000 MG in Water for inj. (sterile) 10 ML IVP SCH (17:44)
[2020-03-01] MEDS: Insulin LISPRO 300 UNITS/3 ML VIAL SQ SCH (17:56)
[2020-03-01 18:02] LABS: ABG Base Excess 3 mEq/L (-2 to 3); ABG HCO3 34 mEq/L (21-27); ABG Oxygen Saturation 92 % (95-98); ABG PCO2 86 mmHg (35-45); ABG PO2 84 mmHg (85-104); ABG TCO2 36 mEq/L (20-26); Blood Gas Modality avaps; Blood Gas VT 550 cc
[2020-03-01] MEDS: Heparin 25,000UNIT/250ML 1/2NS 25,000 UNIT/250 ML IV.SOLN IVC SCH (19:50)
[2020-03-01] MEDS ORDERED: Furosemide 40 MG/4 ML VIAL IVP SCH (21:00)
[2020-03-01 21:09] LABS: ABG Base Excess 4 mEq/L (-2 to 3); ABG HCO3 33 mEq/L (21-27); ABG Oxygen Saturation 95 % (95-98); ABG PCO2 70 mmHg (35-45); ABG PH 7.28 pH Units (7.32-7.45); ABG PO2 86 mmHg (85-104); ABG TCO2 35 mEq/L (20-26); Blood Gas VT 560 cc
[2020-03-02] MEDS: Insulin LISPRO 300 UNITS/3 ML VIAL SQ SCH ×4 (00:05→17:59)
[2020-03-02] MEDS: Ipratropium/Albuterol Neb 3 ML IH SCH ×7 (00:11→23:22)
[2020-03-02] MEDS: MethylPREDNISolone 40 MG/ML VIAL IVP SCH ×3 (00:16→16:17)
[2020-03-02] MEDS: Nystatin POWDER 30 GM BOTTLE TP SCH ×3 (03:07→20:16)
[2020-03-02 04:13] LABS: ABG Base Excess 1 mEq/L (-2 to 3); ABG HCO3 27 mEq/L (21-27); ABG Oxygen Saturation 84 % (95-98); ABG PCO2 46 mmHg (35-45); ABG PH 7.37 pH Units (7.32-7.45); ABG PO2 51 mmHg (85-104); ABG TCO2 28 mEq/L (20-26); Blood Gas VT 560 cc
[2020-03-02] MEDS: Nitroglycerin 1 INCH/GM PACKET TP SCH ×2 (05:40→13:44)
[2020-03-02 06:15] LABS: Basophils % 0.1 %; Hematocrit 32.6 % (35.3-44.9); Hemoglobin 9.8 g/dL (11.5-15.4); Immature Granulocytes % 0.5 % (0-4); Lymphocytes % 7.2 %; Mean Corpuscular HGB Conc 30.1 g/dL (31.6-35.5); Mean Corpuscular Hemoglobin 29.8 pg (28.0-33.3); Mean Corpuscular Volume 99.1 fL (83.0-100.0); Mean Platelet Volume 11.2 fL (9.4-12.4); Monocytes # 0.1 K/mcL (0.0-1.3); Monocytes % 0.9 %; Neutrophils # 12.5 K/mcL (1.6-8.9); Platelet Count 257 K/mcL (140-400); Red Blood Count 3.29 M/mcL (3.82-4.97); Red Cell Distribution Width 14.4 % (11.5-14.5); Segmented Neutrophils % 91.3 %; White Blood Count 13.7 K/mcL (4.3-11.1)
[2020-03-02 06:37] LABS: Albumin 3.9 g/dL (3.5-5.7); Albumin/Globulin Ratio 1.1 (1.1-2.2); Bilirubin,Total 0.5 mg/dL (0.3-1.0); Calcium 9.7 mg/dL (8.6-10.3); Globulin 3.4 g/dL (2.4-3.5); Magnesium 1.9 mg/dL (1.6-2.6); Potassium 5.5 mEq/L (3.5-5.1); Total Protein 7.3 g/dL (6.4-8.9)
[2020-03-02] MEDS ORDERED: Furosemide 40 MG/4 ML VIAL IVP SCH (09:00)
[2020-03-02] MEDS ORDERED: Aspirin Enteric Coated 81 MG Tablet PO SCH (09:00)
[2020-03-02 09:14] LABS: ABG Base Excess -1 mEq/L (-2 to 3); ABG HCO3 29 mEq/L (21-27); ABG Oxygen Saturation 64 % (95-98); ABG PCO2 69 mmHg (35-45); ABG PH 7.23 pH Units (7.32-7.45); ABG PO2 41 mmHg (85-104); ABG TCO2 31 mEq/L (20-26)
[2020-03-02 09:25] LABS: ABG Base Excess 0 mEq/L (-2 to 3); ABG HCO3 28 mEq/L (21-27); ABG Oxygen Saturation 95 % (95-98); ABG PCO2 64 mmHg (35-45); ABG PH 7.25 pH Units (7.32-7.45); ABG PO2 91 mmHg (85-104); ABG TCO2 30 mEq/L (20-26)
[2020-03-02] MEDS: carvediloL 6.25 MG TABLET PO SCH ×2 (09:27→16:16)
[2020-03-02] MEDS: cefTRIAXone 1,000 MG in Water for inj. (sterile) 10 ML IVP SCH (09:28)
[2020-03-02 12:15] LABS: Estimated Average Glucose 137 mg/dl; Hemoglobin A1C 6.4 %
[2020-03-02] MEDS ORDERED: Albumin 25% 25gram/100mL 25 GM/100 ML IV.SOLN IVPB ONE (13:21)
[2020-03-02 14:15] LABS: Uric Acid 13.8 mg/dL (2.3-7.6)
[2020-03-02] MEDS: Heparin 25,000UNIT/250ML 1/2NS 25,000 UNIT/250 ML IV.SOLN IVC SCH ×2 (17:12→21:43)
[2020-03-02] MEDS: *HR* Acetylcysteine 20% 600 MG/3 ML ORAL SYRINGE PO SCH ×2 (20:16→21:49)
[2020-03-02] MEDS ORDERED: *HR* Metoprolol 5 MG/5 ML VIAL IVP ONE ×2 (20:29→20:34)
[2020-03-02 22:15] LABS: ABG Base Excess 4 mEq/L (-2 to 3); ABG HCO3 30 mEq/L (21-27); ABG Oxygen Saturation 92 % (95-98); ABG PCO2 50 mmHg (35-45); ABG PH 7.38 pH Units (7.32-7.45); ABG PO2 66 mmHg (85-104); ABG TCO2 31 mEq/L (20-26); Blood Gas VT 550 cc
[2020-03-03] MEDS: Insulin LISPRO 300 UNITS/3 ML VIAL SQ SCH (00:29)
[2020-03-03] MEDS: MethylPREDNISolone 40 MG/ML VIAL IVP SCH (00:30)
[2020-03-03] MEDS: Nitroglycerin 0.4 MG TAB.SUBL SL PRN ×3 (00:39→03:40)
[2020-03-03 01:51] LABS: Protein/Creatinine Ratio,Urine 0.24 mg/mg (0.00-0.20)
[2020-03-03 01:54] LABS: Bilirubin,Urine Negative (Negative); Blood,Urine Moderate (Negative); Clarity,Urine Turbid (Clear); Color,Urine Yellow (Yellow); Glucose,Urine (UA) Normal (Normal); Hyaline Casts,Urine Few per lpf (None Seen); Ketones,Urine Negative (Negative); Leukocyte Esterase,Urine Trace (Negative); Mucus,Urine Few per lpf (None-Few); Nitrite,Urine Negative (Negative); PH,Urine 5.5 pH Units (5.0-8.0); Protein,Urine Trace mg/dL (Neg-Trace); RBC,Urine TNTC per hpf (0-3); Specific Gravity,Urine 1.016 (1.010-1.025); Urobilinogen,Urine Normal (Normal)
[2020-03-03 03:30] LABS: Basophils % 0.1 %; Hematocrit 30.9 % (35.3-44.9); Hemoglobin 9.4 g/dL (11.5-15.4); Immature Granulocytes % 0.7 % (0-4); Lymphocytes # 0.5 K/mcL (0.6-4.6); Lymphocytes % 2.7 %; Mean Corpuscular HGB Conc 30.4 g/dL (31.6-35.5); Mean Corpuscular Hemoglobin 29.7 pg (28.0-33.3); Mean Corpuscular Volume 97.8 fL (83.0-100.0); Mean Platelet Volume 11.5 fL (9.4-12.4); Monocytes # 1.1 K/mcL (0.0-1.3); Monocytes % 5.8 %; Neutrophils # 17.8 K/mcL (1.6-8.9); Platelet Count 225 K/mcL (140-400); Red Blood Count 3.16 M/mcL (3.82-4.97); Segmented Neutrophils % 90.7 %; White Blood Count 19.6 K/mcL (4.3-11.1)
[2020-03-03] MEDS: Ipratropium/Albuterol Neb 3 ML IH SCH ×2 (03:52→07:07)
[2020-03-03 04:05] LABS: Albumin/Globulin Ratio 1.3 (1.1-2.2); Bilirubin,Total 0.4 mg/dL (0.3-1.0); Calcium 9.5 mg/dL (8.6-10.3); Globulin 3.2 g/dL (2.4-3.5); Potassium 4.6 mEq/L (3.5-5.1); Total Protein 7.2 g/dL (6.4-8.9); Troponin I 35.36 ng/mL (< 0.04)
[2020-03-03] MEDS ORDERED: Midazolam HCl 50 MG/100 ML IV.SOLN IVC SCH (04:45)
[2020-03-03] MEDS ORDERED: FentaNYL (PF) 1,000 MCG/100 ML IV.SOLN IVC SCH (04:45)
[2020-03-03] MEDS ORDERED: *HR* Etomidate 40 MG/20 ML VIAL IVP ONE (04:57)
[2020-03-03] MEDS ORDERED: *HR* PHENYLEPHRINE 1,000 MCG/10 ML SYRINGE IVP ONE (04:57)
[2020-03-03] MEDS ORDERED: EPINEPHrine 1 MG/ML VIAL ONE (04:58)
[2020-03-03] MEDS ORDERED: *HR* Succinylcholine 200 MG/10 ML VIAL IVP ONE (04:58)
[2020-03-03] MEDS ORDERED: Lidocaine -MPF 2% 2 ML VIAL ONE ×2 (05:01)
[2020-03-03] MEDS ORDERED: 0.9 % Sodium Chloride 1,000 ML ONE ×2 (05:02→05:23)
[2020-03-03] MEDS ORDERED: Amiodarone Premix 360 MG/200 ML BAG IVC ONE (06:24)
[2020-03-03] MEDS ORDERED: Amiodarone Premix 150 MG/100 ML BAG IVPB ONE (06:24)
[2020-03-03 07:03] VITALS: BP 106/82
[2020-03-03] MEDS ORDERED: Phenylephrine 20 MG in 0.9 % Sodium Chloride 500 ML IVC SCH (07:15)
[2020-03-03] MEDS ORDERED: Amiodarone Premix 360 MG/200 ML BAG IVC SCH (12:30)
== END 2020-03-03 08:45 | disposition short-term general hospital (02) | DRG 871 ==
LOC: CDU 13:50 → SUATTDRO 13:50 → 2ANU 15:58 → ICNU 03-02 10:56
PROVIDERS: ADMIT Family Medicine; ATTEND Family Medicine